=== PATIENT | male | born 1955 | race Caucasian/White ===

== ENCOUNTER → 2021-09-01 02:09 | Outpatient (CLI) | payer MEDICARE, SELFPAY ==
[2021-09-01 20:09] LABS: SARS-CoV-2 RNA PCR Negative
== END ==
PROVIDERS: PCP Physician Assistant; Visit Provider Internal Medicine Gastroenterology
DX: Z01.812 Encounter for preprocedural laboratory examination (principal); Z20.822 Contact with and (suspected) exposure to COVID-19
CPT/HCPCS: C9803; U0003; U0005

== ENCOUNTER 2021-09-04 00:52 | Day surgery (SDC) | payer MEDICARE, SELFPAY ==
[2021-08-17 14:32] VITALS: BMI 48.6
--- NOTE | 2021-09-03 13:17 | PM.HPGS ---
History of Present Illness History of Present Illness Consent: Risks, benefits, and alternatives have been discussed and questions answered. Patient agrees to proceed with procedure. Chief complaint: positive cologuard Narrative: Brijesh Rao is a 66 year old male referred for colon cancer screening. A recent Cologuard test was positive. Review of Systems Review of Systems: All systems reviewed & are unremarkable except as noted in HPI and below PMFSH Past Medical History Medical History Hypertension Family History Family History Father Family history of alcoholism Mother Family history of malignant neoplasm of cervix Social History Social History Smoking status: Never smoker Alcohol intake: never Substance use: never Substance use type: does not use Living arrangements: with family Spiritual care concerns: No Meds Home Medications and Allergies Home Medications Medication Instructions Recorded Confirmed Type candesartan 32 mg PO DAILY 08/17/21 08/17/21 History cetirizine 10 mg PO DAILY 08/17/21 08/17/21 History docosahexaenoic zwyg-ric-vxr E 2 cap PO DAILY 08/17/21 08/17/21 History [Cardi-[place] 3] furosemide 40 mg PO DAILY 08/17/21 08/17/21 History gxogxpbc-ljp-rahsc-vit K-lycop 1 tablet PO DAILY 08/17/21 08/17/21 History [One-A-Day Men's 50 Plus] naproxen sodium [Aleve] 440 mg PO BID PRN 08/17/21 08/17/21 History potassium chloride 10 meq PO DAILY 08/17/21 08/17/21 History vit B1 [id number]-FA [B 1 tablet PO DAILY 08/17/21 08/17/21 History Complex w-Vit C] Allergies Allergy/AdvReac Type Severity Reaction Status Date / Time No Known Allergies Allergy Verified 08/17/21 14:23 Exam Resp: Auscultation: clear to auscultation bilaterally Cardio: Rate: regular rate Rhythm: regular rhythm GI: GI Palp: Yes Soft to palpation and No Tenderness to palpation present (GI) Assessment and Plan Assessment and plan (1) Colon cancer screening: Code(s): Z12.11 - Encounter for screening for malignant neoplasm of colon Status: Acute Assessment and Plan: Colonoscopy with possible biopsy or polypectomy or cautery or injection of substances.
--- NOTE | 2021-09-04 07:54 | WPDANESEPPF ---
Anes - Initial Pre Proc Eval Procedure: Operation Date: 09/04/21 11:30 Proposed Procedures p Colonoscopy - Adama Thompson MD Date/Time: 09/04/21 07:54 Surgeon: Adama Thompson MD Pre Op Diagnosis: positive cologuard Patient Data Age: 66 Gender: M Height: 1.7 m Weight: 141 kg Allergies Allergy/AdvReac Type Severity Reaction Status Date / Time No Known Allergies Allergy Verified 09/04/21 10:50 Home Medications Medication Instructions Recorded Confirmed Type candesartan 32 mg PO DAILY 08/17/21 08/17/21 History cetirizine 10 mg PO DAILY 08/17/21 08/17/21 History docosahexaenoic udwf-lyo-asy E 2 cap PO DAILY 08/17/21 08/17/21 History [Cardi-[place] 3] furosemide 40 mg PO DAILY 08/17/21 08/17/21 History gearouyo-itz-ksymh-vit K-lycop 1 tablet PO DAILY 08/17/21 08/17/21 History [One-A-Day Men's 50 Plus] naproxen sodium [Aleve] 440 mg PO BID PRN 08/17/21 08/17/21 History potassium chloride 10 meq PO DAILY 08/17/21 09/04/21 History vit B1 [id number]-FA [B 1 tablet PO DAILY 08/17/21 08/17/21 History Complex w-Vit C] Patient hx anesthesia problems: none Family hx anesthesia problems: none Results Review: All pre-operative results and documents have been reviewed as part of the pre-operative evaluation. [facility] Past Medical History Medical History Hypertension Family History Family History Father Family history of alcoholism Mother Family history of malignant neoplasm of cervix Social History Social History Smoking status: Never smoker Alcohol intake: never Substance use: never Substance use type: does not use Living arrangements: with family Spiritual care concerns: No Anes - Eval Final PreProcedure Day of Procedure 09/04/21 07:54 Patient weight: morbidly obese Heart: regular rate and rhythm Lungs: clear to auscultation and normal air movement Airway: Mallampati scale class II Neurological: alert and oriented Last oral intake: >/= 8 hours ASA classification: III Emergent: no Anesthetic plan: proceed Anesthesia type and monitoring: general GIVS and standard monitoring Results Review: All pre-operative results and documents have been reviewed as part of the pre-operative evaluation. Informed Consent: The patient's anesthetic plan and its attendant risks and benefits were discussed with the patient/family/POA. Questions were solicited and answers provided to the satisfaction of the patient/family/POA.
[2021-09-04 10:52] VITALS: BP 158/88; PULSE 66; RESP 18; TEMP 36; O2SAT 97
[2021-09-04] MEDS: LACTATED RINGERS 1,000 ML 150 ML IV CONT (11:06)
[2021-09-04 11:34] VITALS: BP 130/80; PULSE 85; RESP 18; O2SAT 97
[2021-09-04 11:44] VITALS: BP 153/94; PULSE 83; RESP 19; O2SAT 98
[2021-09-04 11:54] VITALS: BP 159/97; PULSE 73; RESP 20; O2SAT 97
== END 2021-09-04 12:06 | disposition home or self-care (01) ==
PROVIDERS: PCP Physician Assistant; Visit Provider Internal Medicine Gastroenterology
PROC: 0DJD8ZZ Inspection of Lower Intestinal Tract, Via Natural or Artificial Opening Endoscopic (ICD-10-PCS; CPT 45378; principal; 2021-09-04 11:30)
DX: Z12.11 Encounter for screening for malignant neoplasm of colon (principal); R19.5 Other fecal abnormalities; I10 Essential (primary) hypertension; E66.01 Morbid (severe) obesity due to excess calories; Z68.42 Body mass index [BMI] 45.0-49.9, adult
CPT/HCPCS: G0121; C9803; J2704; J7120; U0003; U0005

== ENCOUNTER 2024-08-06 23:10 | Inpatient (IN) | payer MEDICARE, SELFPAY ==
--- NOTE | ~2024-08-06 | XR_ITS ---
XR chest 1V portable 08/09/2024 10:21 Indication: Shortness of breath Procedure: AP portable chest Comparison: 04/25/2014 Findings: Cardiomegaly with mild coronary vascular congestion. No pleural effusion or pneumothorax. N o acute osseous abnormality. Impression: 1: Mild pulmonary vascular congestion. Reviewed, dictated and finalized at location B. RVISOR PHOSPHORUS PROCESSING Impression: 1: Mild pulmonary vascular congestion.
--- NOTE | ~2024-08-06 | XR_ITS ---
EXAM: XR tibia fibula LT 2V DATE: 08/06/2024 23:59 HISTORY: BLISTERS REDDNESS PAIN . COMPARISON: None available. FINDINGS: Normal mineralization. No fracture or dislocation. No lytic or blastic lesion. Mild degene rative changes in the left knee and ankle. Plantar enthesopathy. No erosion or periosteal change. Ext ensive dermal thickening and subcutaneous stranding. Irregular and rounded densities overlying the so ft tissues may represent the reported superficial blisters. IMPRESSION: No acute osseous finding the left tibia/fibula. Reviewed, dictated and finalized at location K. LIFT TRUCK OPERATOR
--- NOTE | ~2024-08-06 | US_ITS ---
LEFT LOWER EXTREMITY VENOUS ULTRASOUND Ordering provider: Saundra Jennings MD History: . LLE redness, swelling, pain . Comparison: None. FINDINGS: --COMMON FEMORAL: Patent and free of thrombus. Normal compressibility, phasic flow and augmentation. --PROXIMAL SUPERFICIAL FEMORAL: Patent and free of thrombus. Normal compressibility, phasic flow and augmentation. --DISTAL SUPERFICIAL FEMORAL: Patent and free of thrombus. Normal compressibility, phasic flow and au gmentation. --POPLITEAL: Patent and free of thrombus. Normal compressibility, phasic flow and augmentation. --POSTERIOR TIBIAL: Patent and free of thrombus. Normal compressibility, phasic flow and augmentation . Left inguinal lymph node is seen measuring 3.4 x 5.4 x 1.7 cm. IMPRESSION: Negative left lower extremity venous US. No deep vein thrombosis. Reviewed, dictated and finalized at location A. ITAL CHIEF FINANCIAL OFFICER
--- NOTE | ~2024-08-06 | CT_ITS ---
EXAMINATION: CT tibia/fibula LT w con DATE: 08/08/2024 15:14 INDICATION: Worsening left lower limb cellulitis TECHNIQUE: High resolution computed tomography (CT) of the left tibia/fibula was performed with 100 m L Omnipaque-350 intravenous contrast. Additional sagittal and coronal reconstructions were performed. Automated exposure control and iterative reconstruction technique were employed. The dose-length pro duct was 1019.32 mGy-cm. COMPARISON: None FINDINGS: Bone alignment is normal. No fracture. There is at least moderate osteoarthritis at the medial and la teral compartments of the knee, severe disease which could be underestimated on nonweightbearing imag ing. No left knee joint effusion. Mild subtalar and minimal ankle osteoarthritis also without evident joint effusion. Mild to moderate osteoarthritis at the tarsal metatarsal joints. Skin thickening diffuse subcutaneous edema throughout the left lower leg and extending to the dorsum of the foot consistent with provided history of cellulitis. No loculated or peripherally enhancing fl uid collections to suggest abscess. No periosteal reaction, cortical erosions or other ostial lysis t o suggest osteomyelitis. There is moderate fatty atrophy of the gastrocnemius, soleus and peroneus longus and brevis muscle be llies. There is mild scattered atherosclerotic calcification without hematoma significant stenosis al gage the anterior tibial, posterior tibial and peroneal arteries with three-vessel runoff below the an kle. There is diffuse thickening and multiple small dystrophic calcifications along the Achilles tend on moderate tendinosis. IMPRESSION: 1. Likely cellulitis with skin thickening and diffuse subcutaneous edema throughout the left lower le g and extending over the dorsum of the foot. No abscess. 2. At least moderate osteoarthritis at the medial and lateral margins of the left knee, severity of w hich could be underestimated on nonweightbearing imaging. 3. Chronic Achilles tendinosis. Reviewed, dictated and finalized at location A. RINTENDENT STEVEDORING IMPRESSION: 1. Likely cellulitis with skin thickening and diffuse subcutaneous edema throug hout the left lower leg and extending over the dorsum of the foot. No abscess. 2. At least moderate osteoarthritis at the medial and lateral margins of the le ft knee, severity of which could be underestimated on nonweightbearing imaging. 3. Chronic Achilles tendinosis.
[2024-08-06 23:11] VITALS: BP 153/70; RESP 16; TEMP 36.2; O2SAT 97
--- NOTE | 2024-08-06 23:17 | PC.NURSE ---
left leg oozing, towels placed around leg by ed rn
[2024-08-07] VITALS (24 sets, daily range): BP systolic 113–149; BP diastolic 56–75; PULSE 88–104; RESP 16–26; TEMP 36.6–37.1; O2SAT 91–97; BMI 52.0
[2024-08-07 08:06] LABS: Basophils Absolute Auto 0.1 K/mm3 (0.0-0.1); Basophils Percent Auto 0.4 % (0.2-1.2); Eosinophils Absolute Auto 0.1 K/mm3 (0-0.3); Eosinophils Percent Auto 0.4 % (0-4.4); Hemoglobin 13.7 g/dL (14.0-18.0); Immature Granulocyte Absolute 0.25 K/mm3 (0.00-0.031); Immature Granulocyte Percent A 1.3 % (0-0.5); Lymphocytes Absolute Auto 1.41 K/mm3 (0.9-3.2); Lymphocytes Percent Auto 7.5 % (18.3-44.2); Mean Corpuscular HGB Conc 32.6 g/dl (32-36); Mean Corpuscular Hemoglobin 27.5 pg (26-34); Mean Corpuscular Volume 84.3 fl (80-100); Mean Platelet Volume 10.8 fl (7.4-10.4); Monocytes Absolute Auto 1.5 K/mm3 (0.1-0.6); Monocytes Percent Auto 8.2 % (2.6-8.5); Neutrophils Absolute Auto 15.4 K/mm3 (1.3-6.7); Neutrophils Percent Auto 82.2 % (45.5-73.1); Platelet Count Result 211 k/mm3 (150-375); Red Blood Count 4.98 M/mm3 (4.6-6.20); Red Cell Distribution Width 16.4 % (11.5-14.5); White Blood Count 18.8 K/mm3 (4.5-10.0)
--- NOTE | 2024-08-07 08:15 | ED.GENADULT ---
HPI - General Adult General Chief complaint: Extremity Injury, Lower Stated complaint: left leg redness and swelling, blisters Time Seen by Provider: 08/07/24 07:24 History of Present Illness HPI narrative: About 1 week ago patient noticed some slight redness to his left lower leg, but because he was in [place] on vacation did not get seen by . He is also supposed to be on Lasix but also stopped taking it because there is no time to stop to void. Has also been eating a lot and not using his compression stockings. The redness got worse until finally last night he started having blisters and that is when he decided to come to the hospital. Related Data Home Medications ?Medication ?Instructions ?Recorded ?Confirmed ?Last Taken ?Type candesartan 32 mg tablet 32 mg PO DAILY 08/17/21 08/17/21 09/03/21 09:00 History cetirizine 10 mg tablet 10 mg PO DAILY 08/17/21 08/17/21 09/03/21 09:00 History docosahexaenoic zawn-rnf-rrp E 2 cap PO DAILY 08/17/21 08/17/21 09/01/21 History capsule furosemide 40 mg tablet 40 mg PO DAILY 08/17/21 08/17/21 09/03/21 09:00 History rdcvzqpzexuf-cel-rtstv acid-vit 1 tablet PO DAILY 08/17/21 08/17/21 09/01/21 History K-lycop 400 mcg-20 mcg-370 mcg tablet (One-A-Day Men's 50 Plus (with vitamin K)) naproxen sodium 220 mg tablet 440 mg PO BID PRN Pain 08/17/21 08/17/21 09/03/21 09:00 History (Aleve) potassium chloride 10 mEq 10 meq PO DAILY 08/17/21 09/04/21 09/03/21 09:00 History tablet,extended release [id number]-S-FY 1 tablet PO DAILY 08/17/21 08/17/21 09/01/21 History 18 mg-10 mg-45 mg-5 mg-250 mg tablet (B Complex w-Vit C) Allergies Allergy/AdvReac Type Severity Reaction Status Date / Time No Known Allergies Allergy Verified 09/04/21 10:50 Review of Systems Review of Systems: All systems reviewed & are unremarkable except as noted in HPI and below PMFSH Past Medical History Medical History Hypertension Family History Family History Father Family history of alcoholism Mother Family history of malignant neoplasm of cervix Social History Social History Smoking status: Never smoker Alcohol intake: never Substance use: never Substance use type: does not use Living arrangements: with family Spiritual care concerns: No Exam Narrative: EXAMINATION OF ORGAN SYSTEMS/BODY AREAS: Constitutional: Vital signs per nursing GENERAL:[No acute distress, non-toxic appearing.] HEAD: Normal with no signs of head trauma. EYES: EOMI, conjunctiva normal ENT: Hearing grossly intact LUNGS: Nonlabored breathing. HEART: [Regular rate and rhythm] ABD: [Soft], [nontender to palpation] EXT: Swelling left lower extremity SKIN: Significant redness with some blisters to the left lower leg; no exquisite tenderness. Sensation intact. No crepitus. NEURO: [Alert and oriented x 3. No gross focal sensory or strength deficits.] PSYCH: Normal affect Course Vital Signs Vital signs: Vital Signs Temperature 97.2 F L 08/06/24 23:11 Respiratory Rate 16 08/06/24 23:11 Blood Pressure 153/70 H 08/06/24 23:11 Pulse Oximetry 97 08/06/24 23:11 Temperature 97.2 F L 08/06/24 23:11 Pulse Rate 89 08/07/24 08:12 Respiratory Rate 18 08/07/24 08:12 Blood Pressure 131/66 08/07/24 08:12 Pulse Oximetry 96 08/07/24 08:12 Medical Decision Making [facility] Narrative Medical decision making narrative: 69M with left lower leg swelling, redness, pain and chills, ongoing for last few days but he with why on vacation so has not been taking his Lasix, elevating his foot, or seeing a doctor for this. No chest pain or shortness of breath. I did rule out DVT with ultrasound which is thankfully negative. Symptoms and exam consistent with cellulitis to the unilateral exam, however with the blisters, patient being diabetic, and the elevated white count, I did feel he needed to be admitted. He is thankfully very well appearing, there is no crepitus or significant tenderness that would make me concerned for necrotizing fasciitis, he is overall a very well-appearing patient, with normal lactic acid, discussed with hospitalist for admission. Patient agreeable to this plan. I did also give a dose of Lasix. Vital Signs Vital Signs: Vital Signs Temperature 97.2 F L 08/06/24 23:11 Respiratory Rate 16 08/06/24 23:11 Blood Pressure 153/70 H 08/06/24 23:11 Pulse Oximetry 97 08/06/24 23:11 Temperature 97.2 F L 08/06/24 23:11 Pulse Rate 89 08/07/24 08:12 Respiratory Rate 18 08/07/24 08:12 Blood Pressure 131/66 08/07/24 08:12 Pulse Oximetry 96 08/07/24 08:12 Lab Data 08/07/24 04:50 08/07/24 04:50 Labs: Lab Results 08/07/24 08/07/24 Range/Units 04:50 08:26 WBC 18.8 H (4.5-10.0) K/mm3 RBC 4.98 (4.6-6.20) M/mm3 Hgb 13.7 L (14.0-18.0) g/dL Hct 42.0 (42.0-52.0) % MCV 84.3 (80-100) fl MCH 27.5 (26-34) pg MCHC 32.6 (32-36) g/dl RDW 16.4 H (11.5-14.5) % Plt Count 211 (150-375) k/mm3 MPV 10.8 H (7.4-10.4) fl Immature Gran % (Auto) 1.3 H (0-0.5) % Neut % (Auto) 82.2 H (45.5-73.1) % Lymph % (Auto) 7.5 L (18.3-44.2) % [place] % (Auto) 8.2 (2.6-8.5) % Eos % (Auto) 0.4 (0-4.4) % Baso % (Auto) 0.4 (0.2-1.2) % Lymph # (Auto) 1.41 (0.9-3.2) K/mm3 [place] # (Auto) 1.5 H (0.1-0.6) K/mm3 Eos # (Auto) 0.1 (0-0.3) K/mm3 Baso # (Auto) 0.1 (0.0-0.1) K/mm3 Abs Immat Gran (auto) 0.25 H (0.00-0.031) K/mm3 Absolute Neuts (auto) 15.4 H (1.3-6.7) K/mm3 Absolute Nucleated RBC 0.000 (0.0-0.012) K/mm3 Nucleated RBC % 0.0 (0.0-0.2) % Sodium 140 (137-145) mmol/L Potassium 3.9 (3.4-5.0) mmol/L Chloride 106 (98-107) mmol/L Carbon Dioxide 25 (22-30) mmol/L Anion Gap 9 (4-12) mmol/L BUN 31 H (9-20) mg/dL Creatinine 1.40 H (0.7-1.3) mg/dL Estim Creat Clear Calc 65 ml/min Estimated GFR 50 L (59 - ) Glucose 100 (65-110) mg/dL Lactic Acid 1.1 (0.7-2.0) mmol/L Calcium 9.1 (8.4-10.2) mg/dL Total Bilirubin 1.3 (0.2-1.3) mg/dL AST 32 (17-59) U/L ALT 26 (6-50) U/L Alkaline Phosphatase 188 H (38-126) U/L NT-Pro-B Natriuret Pep 827 H (19.9-100) pg/mL Total Protein 8.0 (6.3-8.2) g/dL Albumin 3.6 (3.5-5.1) g/dL Discharge Plan Discharge Clinical Impression: Cellulitis Patient Disposition: Still a Patient Condition: Stable Patient Language: Italian Prescriptions: No Action furosemide 40 mg tablet 40 mg PO DAILY cetirizine 10 mg Tablet 10 mg PO DAILY potassium chloride 10 mEq tablet extended release 10 meq PO DAILY naproxen sodium [Aleve] 220 mg Tablet 440 mg PO BID PRN (Reason: Pain) candesartan 32 mg tablet 32 mg PO DAILY docosahexaenoic qode-wen-pcz E Capsule 2 cap PO DAILY B Complex w-Vit C 67-72-72-5-250 mg Tablet 1 tablet PO DAILY One-A-Day Men's 50 Plus(vit K) 400-20-370 mcg Tablet 1 tablet PO DAILY Follow-up/Referrals: Tru,DIA Perez [Primary Care Provider] -
[2024-08-07 08:25] LABS: Alanine Aminotransferase 26 U/L (6-50); Albumin Level 3.6 g/dL (3.5-5.1); Alkaline Phosphatase 188 U/L (38-126); Anion Gap 9 mmol/L (4-12); Aspartate Amino Transferase 32 U/L (17-59); Bilirubin,Total 1.3 mg/dL (0.2-1.3); Blood Urea Nitrogen 31 mg/dL (9-20); Calcium 9.1 mg/dL (8.4-10.2); Carbon Dioxide 25 mmol/L (22-30); Chloride 106 mmol/L (98-107); Estimated CRCL calculation 65 ml/min; Estimated Glomerular Filt Rate 50; Glucose 100 mg/dL (65-110); Potassium 3.9 mmol/L (3.4-5.0); Sodium 140 mmol/L (137-145)
[2024-08-07 08:33] LABS: NT Pro B Type Natriuretic Pept 827 pg/mL (19.9-100)
[2024-08-07 08:46] LABS: Lactic Acid Reflex 1.1 mmol/L (0.7-2.0)
[2024-08-07] MEDS: FUROSEMIDE INJ 40 MG/4 ML VIAL IV PUSH (09:14)
[2024-08-07] MEDS: ceFAZolin 1 GM/NS 50 ML 1 GM/50 ML BAG IVPB ×2 (09:14→16:58)
[2024-08-07] MEDS: MORPHINE SULFATE (*CRX) 4 MG/ML INJ IV PUSH (10:13)
--- NOTE | 2024-08-07 10:32 | ADMGEN ---
This patient, Brijesh Joe rad, was admitted to Medical Room 241-. Patient/family oriented to hospital policies and general routines including ID bracelet, bed and alarms, visiting hours, pain management, procedures, bathroom and other care routines, personal items, smoking policy, room service/diet, and visiting hours. Information on how to activate the Rapid Response Team has been discussed. Patient/Family are encouraged to report perceived risks to care and to ask questions if they do not understand what they are told or what they should do.
[2024-08-07 11:37] LABS: Glucose Point of Care 96 mg/dl (65-105)
--- NOTE | 2024-08-07 14:57 | P.HP_ITS ---
H&P: HPI History of Present Illness Date/Time: 08/07/24 14:57 Chief Complaint: cellulitis left lower extremity Narrative: Patient is a 69-year-old male who presented to the emergency department with complaints of swelling and redness to his left lower extremity. Patient patient states he recently was vacationing in [place] for 3 weeks in stops taking his home medications 1 being his Lasix because he did not want have to stop and urinate all the time while driving as well as not taking his oral diabetic medications. patient states symptoms began 3 days ago on their way back from [facility] worsened reported 1 episode of shortness of breath, fever and chills. patient also stated he had hit his leg multiple times on wheelchair legs. patient's labs were unremarkable other than elevated white count 16 x-ray of tib-fib with no acute issues and venous Dopplers negative for DVT. patient's left lower extremity with 3+ edema, erythema and warmth to touch. Patient was admitted to the medical unit for further treatment of cellulitis started on IV antibiotics pending blood cultures and wound culture. Review of Systems Review of Systems: All systems reviewed & are unremarkable except as noted in HPI and below PMFSH Past Medical History Medical History Diabetes Hypertension Family History Family History Father Family history of alcoholism Diabetes mellitus Mother Family history of malignant neoplasm of cervix Social History Social History Smoking status: Never smoker Alcohol intake: never Substance use: never Substance use type: does not use Do You Feel Safe in your Home?: Yes Lack of Transportation: No Lack of Food: Never True Current Housing: I Have Housing Concerned About Future Housing: No Difficulty Paying Gas/Electric Bills: No Difficulty Paying for Meds: No Currently Unemployed: No Education: High School Diploma/GED Difficulty w/ Childcare or Family Care: No Living arrangements: with family Spiritual care concerns: No Meds Home Medications and Allergies Home Medications ?Medication ?Instructions ?Recorded ?Confirmed ?Type candesartan 32 mg tablet 32 mg PO DAILY 08/17/21 08/07/24 History cetirizine 10 mg tablet 10 mg PO DAILY 08/17/21 08/07/24 History docosahexaenoic zlik-sry-ygh E 2 cap PO DAILY 08/17/21 08/07/24 History capsule furosemide 40 mg tablet 40 mg PO DAILY 08/17/21 08/07/24 History mvopyfcsngmk-xpc-uayuy acid-vit 1 tablet PO DAILY 08/17/21 08/07/24 History K-lycop 400 mcg-20 mcg-370 mcg tablet (One-A-Day Men's 50 Plus (with vitamin K)) naproxen sodium 220 mg tablet 440 mg PO BID PRN Pain 08/17/21 08/07/24 History (Aleve) potassium chloride 10 mEq 10 meq PO DAILY 08/17/21 08/07/24 History tablet,extended release ascorbic acid (vitamin C) 500 mg 500 mg PO DAILY 08/07/24 08/07/24 History tablet (C-500) cholecalciferol (vitamin D3) 50 50 mcg PO DAILY 08/07/24 08/07/24 History mcg (2,000 unit) capsule (Vitamin D3) glimepiride 1 mg tablet 1 mg PO DAILY 08/07/24 08/07/24 History mecobalamin (vitamin B12) 1,000 1,000 mcg PO DAILY 08/07/24 08/07/24 History mcg chewable tablet metformin 750 mg tablet,extended 750 mg PO QPM 08/07/24 08/07/24 History release 24 hr Allergies Allergy/AdvReac Type Severity Reaction Status Date / Time No Known Allergies Allergy Verified 09/04/21 10:50 Vital Signs Vital Signs - 24 hr 08/06/24 23:11 08/07/24 07:39 08/07/24 07:41 Temperature 97.2 F L Pulse Rate Respiratory Rate 16 Blood Pressure 153/70 H 149/68 H Pulse Oximetry 97 97 95 Oxygen Delivery 08/07/24 07:45 08/07/24 07:46 08/07/24 08:00 Temperature Pulse Rate Respiratory Rate Blood Pressure 130/67 Pulse Oximetry 95 95 93 Oxygen Delivery 08/07/24 08:01 08/07/24 08:12 08/07/24 08:15 Temperature Pulse Rate 89 Respiratory Rate 18 Blood Pressure 131/66 131/66 Pulse Oximetry 93 96 94 Oxygen Delivery 08/07/24 08:16 08/07/24 08:31 08/07/24 08:46 Temperature Pulse Rate Respiratory Rate Blood Pressure 129/62 149/71 H 134/66 Pulse Oximetry 94 Oxygen Delivery 08/07/24 09:01 08/07/24 09:12 08/07/24 09:15 Temperature Pulse Rate 104 H 90 Respiratory Rate 23 H 22 H Blood Pressure 125/75 Pulse Oximetry 95 97 Oxygen Delivery 08/07/24 09:16 08/07/24 09:30 08/07/24 09:31 Temperature Pulse Rate 90 91 92 Respiratory Rate 26 H 22 H 22 H Blood Pressure 139/62 133/71 Pulse Oximetry 95 92 93 Oxygen Delivery 08/07/24 09:45 08/07/24 09:46 08/07/24 10:00 Temperature Pulse Rate 94 90 92 Respiratory Rate 22 H 24 H 22 H Blood Pressure 130/69 Pulse Oximetry 94 93 91 Oxygen Delivery 08/07/24 10:01 08/07/24 10:54 08/07/24 11:28 Temperature 98.6 F Pulse Rate 88 94 Respiratory Rate 21 H 18 Blood Pressure 113/56 L 125/65 Pulse Oximetry 96 95 Oxygen Delivery Room Air 08/07/24 14:00 Temperature 98.7 F Pulse Rate 90 Respiratory Rate 20 Blood Pressure 145/70 H Pulse Oximetry 96 Oxygen Delivery Exam Narrative: BP: 145/70 P: 90 RR: 20 T: 98.7 O2 on RA 96% * GENERAL: Alert and oriented x 3 pleasant obese male. No acute distress. * EYES: PERRLA. * HEENT: Moist mucous membranes. * LUNGS: Clear to auscultation bilaterally. No accessory muscle use. * CARDIOVASCULAR: Regular rate and rhythm. JVD. S1-S2 * ABDOMEN: Soft, non tenderness and non-distended. No palpable masses. * EXTREMITIES: 3+ edema LLE, tender to touch * SKIN: LLE with erthyema, 3+ edema, warm to touch and 1 open blister * NEUROLOGIC: No focal neurological deficits. * PSYCHIATRIC: Appropriate mood and affect. Good judgement and insight. H&P: Results Labs Labs: Short CBC 08/07/24 Range/Units 04:50 WBC 18.8 H (4.5-10.0) K/mm3 Hgb 13.7 L (14.0-18.0) g/dL Hct 42.0 (42.0-52.0) % Plt Count 211 (150-375) k/mm3 BMP 08/07/24 04:50 Sodium 140 Potassium 3.9 Chloride 106 Carbon Dioxide 25 BUN 31 H Creatinine 1.40 H Glucose 100 Calcium 9.1 Liver Function 08/07/24 Range/Units 04:50 Total Bilirubin 1.3 (0.2-1.3) mg/dL AST 32 (17-59) U/L ALT 26 (6-50) U/L Alkaline Phosphatase 188 H (38-126) U/L Albumin 3.6 (3.5-5.1) g/dL Imaging Venous US: Radiologist's impression: LEFT LOWER EXTREMITY VENOUS ULTRASOUND Ordering provider: Saundra Jennings MD History: . LLE redness, swelling, pain . Comparison: None. FINDINGS: --COMMON FEMORAL: Patent and free of thrombus. Normal compressibility, phasic flow and augmentation. --PROXIMAL SUPERFICIAL FEMORAL: Patent and free of thrombus. Normal compressi bility, phasic flow and augmentation. --DISTAL SUPERFICIAL FEMORAL: Patent and free of thrombus. Normal compressibility, phasic flow and augmentation. --POPLITEAL: Patent and free of thrombus. Normal compressibility, phasic flow and augmentation. --POSTERIOR TIBIAL: Patent and free of thrombus. Normal compressibility, phasic flow and augmentation. Left inguinal lymph node is seen measuring 3.4 x 5.4 x 1.7 cm. IMPRESSION: Negative left lower extremity venous US. No deep vein thrombosis. EXAM: XR tibia fibula LT 2V DATE: 08/06/2024 23:59 HISTORY: BLISTERS REDDNESS PAIN . COMPARISON: None available. FINDINGS: Normal mineralization. No fracture or dislocation. No lytic or blastic lesion. Mild degenerative changes in the left knee and ankle. Plantar enthesopathy. No erosion or periosteal change. Extensive dermal thickening and subcutaneous stranding. Irregular and rounded densities overlying the soft tissues may represent the reported superficial blisters. IMPRESSION: No acute osseous finding the left tibia/fibula. Assessment and Plan Assessment and plan (1) Cellulitis: Code(s): L03.90 - Cellulitis, unspecified Status: Acute Assessment and Plan: Patient quit taking his medications while on vacation for 3 weeks cellulitis of the LLE likely secondary to his diabetes, not taking his lasix, and reported he hit it on multiple wheelchair bars. * Blood cultures pending * Wound culture pending * Imaging: tib-fib no acute of with this finding * venous Doppler negative for DVT * cefazolin pending cultures * glucose controlled * elevate extremity when at rest * antipyretics for any fever * pain control * Lasix IV daily for LLE swelling has not taken PO in over 3 weeks (2) Diabetes: Code(s): E11.9 - Type 2 diabetes mellitus without complications Status: Acute Assessment and Plan: * Accu-Cheks a.c. HS * sliding scale insulin * hold oral diabetic medications * Hemoglobin A1c pending * Diabetic diet * encourage lifestyle modifications and weight loss * Optimize Noah inhibitors and statins. * Watch for hypoglycemia/hypoglycemic protocol ordered (3) Hypertension: Code(s): I10 - Essential (primary) hypertension Status: Acute Assessment and Plan: * reviewed mildly hypertensive POA * will resume patient's candesartan will likely need auto sub * monitor BP per unit protocol Plan Code status: Full code per patient DVT prophylaxis: Lovenox Stress ulcer prophylaxis: NA PT/OT notes: Ambulatory Disposition: patient was admitted to the medical unit for left lower extremity cellulitis continue with IV antibiotic therapy IV Lasix pending cultures. Patient is ambulatory and plan will be to discharge back to home medically stable. Quality VTE Prophylaxis VTE prophylaxis: pharmacologic ordered -Patient's previous records reviewed on admission -ER notes reviewed in detail on admission -discussed all findings and current treatment plan with patient/Family/POA -Consultations reviewed for recommendations -Patient's disposition for safe discharge discussed with high risk case manager Dictation performed by [employer] direct speech recognition software, therefore sharepoint web developer variants and typographical errors may occur. Hospitalist MIPS Advance Care Plan I have confirmed that the patient's Advanced Care Plan is present, code status is documented, or surrogate decision maker is listed in patient medical record.: Yes Medication Reconciliation I have utilized all available resources to obtain, update and review the [facility] (includes all prescriptions, OTC, herbals, cannabis, and nutritional supplements).: Yes The patient is not eligible for med reconciliation; the patient is in a emergent medical situation where delaying treatment would jeopardize the patients health.: No
[2024-08-07 17:02] LABS: Glucose Point of Care 86 mg/dl (65-105)
[2024-08-07 20:00] LABS: Glucose Point of Care 127 mg/dl (65-105)
[2024-08-07] MEDS: guaiFENesin/DEXTROMETHORPHAN 10 ML UDC PO (22:19)
[2024-08-08] MEDS: ceFAZolin 1 GM/NS 50 ML 1 GM/50 ML BAG IVPB ×2 (01:34→07:59)
[2024-08-08 05:55] VITALS: BP 140/64; PULSE 85; RESP 16; TEMP 36.5; O2SAT 93
[2024-08-08 05:56] LABS: Basophils Absolute Auto 0.1 K/mm3 (0.0-0.1); Basophils Percent Auto 0.5 % (0.2-1.2); Eosinophils Absolute Auto 0.1 K/mm3 (0-0.3); Eosinophils Percent Auto 0.6 % (0-4.4); Hemoglobin 12.8 g/dL (14.0-18.0); Immature Granulocyte Absolute 0.87 K/mm3 (0.00-0.031); Lymphocytes Absolute Auto 1.68 K/mm3 (0.9-3.2); Lymphocytes Percent Auto 9.6 % (18.3-44.2); Mean Corpuscular Hemoglobin 26.9 pg (26-34); Mean Corpuscular Volume 84.2 fl (80-100); Monocytes Absolute Auto 1.6 K/mm3 (0.1-0.6); Monocytes Percent Auto 9.1 % (2.6-8.5); Neutrophils Absolute Auto 13.2 K/mm3 (1.3-6.7); Neutrophils Percent Auto 75.2 % (45.5-73.1); Platelet Count Result 209 k/mm3 (150-375); Red Blood Count 4.75 M/mm3 (4.6-6.20); Red Cell Distribution Width 16.5 % (11.5-14.5); White Blood Count 17.5 K/mm3 (4.5-10.0)
[2024-08-08 06:11] LABS: Hemoglobin A1C 6.1 % (<5.7)
[2024-08-08 06:12] LABS: Alanine Aminotransferase 17 U/L (6-50); Albumin Level 3.3 g/dL (3.5-5.1); Alkaline Phosphatase 168 U/L (38-126); Anion Gap 9 mmol/L (4-12); Aspartate Amino Transferase 21 U/L (17-59); Bilirubin,Total 1.1 mg/dL (0.2-1.3); Blood Urea Nitrogen 27 mg/dL (9-20); Calcium 8.5 mg/dL (8.4-10.2); Carbon Dioxide 22 mmol/L (22-30); Chloride 106 mmol/L (98-107); Estimated CRCL calculation 74 ml/min; Estimated Glomerular Filt Rate 60; Glucose 92 mg/dL (65-110); Potassium 3.8 mmol/L (3.4-5.0); Sodium 137 mmol/L (137-145)
--- NOTE | 2024-08-08 07:41 | PM.IMPN ---
Progress Note: A&P Assessment and Plan (1) Cellulitis: Code(s): L03.90 - Cellulitis, unspecified Status: Acute Assessment and Plan: Patient quit taking his medications while on vacation for 3 weeks cellulitis of the LLE likely secondary to his diabetes, not taking his lasix, and reported he hit it on multiple wheelchair bars. Blood cultures showing no growth to date Wound culture pending tib-fib x-ray no acute of with this finding venous Doppler negative for DVT elevate extremity when at rest on 2 pillows Continue pain control Will get CT of left lower extremity with contrast Increased IV lasix to 40 mg BID WBC 17.5 today, not much movement Continue cefazolin Start Vancomycin today, pharmacy to dose (2) Diabetes: Code(s): E11.9 - Type 2 diabetes mellitus without complications Status: Acute Assessment and Plan: Blood sugars ranging 96-127 Hgb A1C 6.1 Accu checks AC/HS Moderate dose SSI ordered Hold metformin and glimepiride hypoglycemic protocol in place Diabetic diet ordered (3) Hypertension: Code(s): I10 - Essential (primary) hypertension Status: Acute Assessment and Plan: Blood pressure ranging 125/65-145/70 Continue Candesartan Time Spent With Patient Time with patient: Greater than 35 minutes Subjective Date/time seen: 08/08/24 07:41 Interval history: Interval history: This is a 69-year-old male who presented to the hospital on 08/07/2024 with cellulitis to the left lower extremity. Workup in the hospital included tib fib x-ray which was negative for any acute osseous process. Venous Doppler study was also obtained and was negative for DVT. Initial labs showed a white blood cell count of 18.8, hemoglobin 13.7, creatinine 1.40, EGFR 50, alkaline phos 188, proBNP 827. Blood cultures were obtained and are pending. Patient was started on Ancef. Subjective: Patient denies any fever, chills, nausea, vomiting, diarrhea, abdominal pain, chest pain, shortness of breath. Patient endorses pain and swelling to left lower extremity. Labs and imaging reviewed. Review of Systems Review of Systems: All systems reviewed & are unremarkable except as noted in HPI and below Constitutional: Constitutional: Reports as per HPI and Reports no additional constitutional complaints Eyes: Eyes: Reports as per HPI and Reports no additional eye complaints ENT: Reports system reviewed and no additional complaints, except as documented and Reports as per HPI Cardiovascular: Cardiovascular: Reports as per HPI and Reports no additional cardiovascular complaints Respiratory: Respiratory: Reports as per HPI and Reports no additional respiratory complaints Gastrointestinal: Gastrointestinal: Reports as per HPI and Reports no additional gastrointestinal complaints Genitourinary: Genitourinary: Reports no additional male genitourinary complaints and Reports as per HPI Musculoskeletal: Musculoskeletal: Reports no additional musculoskeletal complaints and Reports as per HPI Integumentary/Breasts: Skin/Breast: Reports system reviewed and no additional complaints, except as docu and Reports as per HPI Neurologic: Reports system reviewed and no additional complaints, except as documented and Reports as per HPI Psychiatric: Psychiatric: Reports no additional psychiatric complaints and Reports as per HPI Exam Narrative: General: In no acute distress, well nourished Head: atraumatic, no encephalopathy Eyes: PERRLA, sclera clear ENT: moist mucous membranes, nasal passages clear Neck: supple, no JVD, no adenopathy, trachea midline Cardiac: Normal S1 and S2. No murmur, gallops or friction rubs, peripheral pulses intact. Respiratory: Lungs clear to auscultation, no adventitious lung sounds, currently on room air Gastrointestinal: soft, non-distended, non-tender, normoactive bowel sounds. : voiding without difficulty clear vic urine Extremities: moves all extremities well, no edema, good ROM, strength 5/5 Skin: Left lower extremity swelling with redness and warmth, popped blisters that are draining. Neuro: Alert and oriented x4, cranial nerves intact, no neuro deficits. Psych: normal mood, normal affect, interactive Objective Data Vital Signs Vital Signs: Vital Signs - 24 hr 08/07/24 07:45 08/07/24 07:46 08/07/24 08:00 Temperature Pulse Rate Respiratory Rate Blood Pressure 130/67 Pulse Oximetry 95 95 93 Oxygen Delivery 08/07/24 08:01 08/07/24 08:12 08/07/24 08:15 Temperature Pulse Rate 89 Respiratory Rate 18 Blood Pressure 131/66 131/66 Pulse Oximetry 93 96 94 Oxygen Delivery 08/07/24 08:16 08/07/24 08:31 08/07/24 08:46 Temperature Pulse Rate Respiratory Rate Blood Pressure 129/62 149/71 H 134/66 Pulse Oximetry 94 Oxygen Delivery 08/07/24 09:01 08/07/24 09:12 08/07/24 09:15 Temperature Pulse Rate 104 H 90 Respiratory Rate 23 H 22 H Blood Pressure 125/75 Pulse Oximetry 95 97 Oxygen Delivery 08/07/24 09:16 08/07/24 09:30 08/07/24 09:31 Temperature Pulse Rate 90 91 92 Respiratory Rate 26 H 22 H 22 H Blood Pressure 139/62 133/71 Pulse Oximetry 95 92 93 Oxygen Delivery 08/07/24 09:45 08/07/24 09:46 08/07/24 10:00 Temperature Pulse Rate 94 90 92 Respiratory Rate 22 H 24 H 22 H Blood Pressure 130/69 Pulse Oximetry 94 93 91 Oxygen Delivery 08/07/24 10:01 08/07/24 10:54 08/07/24 11:28 Temperature 98.6 F Pulse Rate 88 94 Respiratory Rate 21 H 18 Blood Pressure 113/56 L 125/65 Pulse Oximetry 96 95 Oxygen Delivery Room Air 08/07/24 14:00 08/07/24 20:52 08/08/24 05:55 Temperature 98.7 F 97.8 F 97.7 F Pulse Rate 90 91 85 Respiratory Rate 20 16 16 Blood Pressure 145/70 H 131/64 140/64 Pulse Oximetry 96 96 93 Oxygen Delivery Intake/Output Intake/Output: Intake & Output 08/05/24 08/06/24 08/07/24 08/08/24 23:59 23:59 23:59 23:59 Intake Total 1540 250 Output Total 1250 525 Balance 290 -275 Meds/Results Medications: Active Medications Generic Name Dose Route Start Last Admin Trade Name Freq PRN Reason Stop Dose Admin Acetaminophen 650 mg 08/07/24 14:59 Acetaminophen 325 Mg Tablet PO Q4H PRN Mild Pain (1-3) or Fever Hydrocodone Bitart/Acetaminophen 1 tab 08/07/24 14:59 Hydrocodone/Acetaminophen (*Crx) 5-325 Mg Tablet PO Q4H PRN Moderate Pain (4-6) Ascorbic Acid 500 mg 08/08/24 09:00 Ascorbic Acid 500 Mg Tablet PO DAILY KAVIN Candesartan Cilexetil 32 mg 08/08/24 09:00 Candesartan Cilexetil 16 Mg Tablet PO QAM [facility] Cyanocobalamin 1,000 mcg 08/08/24 09:00 Cyanocobalamin 1,000 Mcg Tablet PO QAM KAVIN Dextrose 12.5 gm 08/07/24 12:06 Dextrose 50% 25 Gm/50 Ml Syringe IV PUSH PRN PRN Hypoglycemia Protocol Dextrose 12.5 gm 08/07/24 15:01 Dextrose 50% 25 Gm/50 Ml Syringe IV PUSH PRN PRN Hypoglycemia Protocol Enoxaparin Sodium 40 mg 08/08/24 09:00 Enoxaparin 40 Mg/0.4 Ml Syringe SUB-Q DAILY KAVIN Furosemide 40 mg 08/08/24 09:00 Furosemide Inj 40 Mg/4 Ml Vial IV PUSH DAILY KAVIN Glucagon 1 mg 08/07/24 12:06 Glucagon For Inj 1 Mg Vial IM PRN PRN Hypoglycemia Protocol Glucagon 1 mg 08/07/24 15:01 Glucagon For Inj 1 Mg Vial IM PRN PRN Hypoglycemia Protocol Glucose 15 gm 08/07/24 12:06 Glucose Oral Gel 15 Gm Of Glucse In 37.5 Gm Tube PO PRN PRN Hypoglycemia Protocol Glucose 15 gm 08/07/24 15:01 Glucose Oral Gel 15 Gm Of Glucse In 37.5 Gm Tube PO PRN PRN Hypoglycemia Protocol Guaifenesin/Dextromethorphan 10 ml 08/07/24 22:14 08/07/24 22:19 Guaifenesin/Dextromethorphan 10 Ml Udc PO 10 ml Q4H PRN Administration Cough Cefazolin Sodium 1 gm in 50 mls @ 100 mls/hr 08/07/24 17:00 08/08/24 02:04 Ancef 1 Gm/Ns 50 Ml IVPB Infused Q8H KAVIN Infusion Dextrose 1,000 mls @ 100 mls/hr 08/07/24 12:06 Dextrose 5% 1,000 Ml IVPB PRN PRN Hypoglycemia Protocol Dextrose 1,000 mls @ 100 mls/hr 08/07/24 15:01 Dextrose 5% 1,000 Ml IVPB PRN PRN Hypoglycemia Protocol Insulin Aspart 3 - 6 units 08/07/24 17:00 08/07/24 18:35 Insulin Aspart (*Bkc) 100 Units/Ml SUB-Q Not Given TIDWM [facility] Protocol Loratadine 10 mg 08/08/24 09:00 Loratadine 10 Mg Tablet PO QAM [facility] Morphine Sulfate 2 mg 08/07/24 14:59 Morphine Sulfate (*Crx) 2 Mg/Ml Inj IV PUSH Q4H PRN Pain Rated 7-10 Multivitamins/Calcium 1 tablet 08/08/24 09:00 Therapeutic Multivitamins/Minerals Tab (*Bkc) PO DAILY [facility] Naloxone HCl 0.1 mg 08/07/24 14:59 Naloxone Hcl 0.4 Mg/Ml Vial IV PUSH Q2M PRN Opiate Reversal Ondansetron HCl 4 mg 08/07/24 14:59 Ondansetron Inj 4 Mg/2 Ml Vial IV PUSH Q6H PRN Nausea And Vomiting Vitamin D 2,000 units 08/08/24 09:00 Cholecalciferol 1,000 Units Tablet PO DAILY [facility] Radiology Results: ITS Impressions Tibia/Fibula X-Ray 08/07/24 00:14 IMPRESSION: No acute osseous finding the left tibia/fibula. Venous Doppler Study 08/07/24 08:59 IMPRESSION: Negative left lower extremity venous US. No deep vein thrombosis. Labs Labs: Laboratory Results - last 24 hr 08/07/24 08/07/24 08/07/24 04:50 08:26 11:33 WBC 18.8 H RBC 4.98 Hgb 13.7 L Hct 42.0 MCV 84.3 MCH 27.5 MCHC 32.6 RDW 16.4 H Plt Count 211 MPV 10.8 H Immature Gran % (Auto) 1.3 H Neut % (Auto) 82.2 H Lymph % (Auto) 7.5 L Garvin % (Auto) 8.2 Eos % (Auto) 0.4 Baso % (Auto) 0.4 Lymph # (Auto) 1.41 Garvin # (Auto) 1.5 H Eos # (Auto) 0.1 Baso # (Auto) 0.1 Abs Immat Gran (auto) 0.25 H Absolute Neuts (auto) 15.4 H Absolute Nucleated RBC 0.000 Nucleated RBC % 0.0 Sodium 140 Potassium 3.9 Chloride 106 Carbon Dioxide 25 Anion Gap 9 BUN 31 H Creatinine 1.40 H Estim Creat Clear Calc 65 Estimated GFR 50 L Glucose 100 POC Capillary Glucose 96 Hemoglobin A1c Lactic Acid 1.1 Calcium 9.1 Total Bilirubin 1.3 AST 32 ALT 26 Alkaline Phosphatase 188 H NT-Pro-B Natriuret Pep 827 H Total Protein 8.0 Albumin 3.6 08/07/24 08/07/24 08/08/24 16:56 19:38 05:07 WBC 17.5 H RBC 4.75 Hgb 12.8 L Hct 40.0 L MCV 84.2 MCH 26.9 MCHC 32.0 RDW 16.5 H Plt Count 209 MPV 11.0 H Immature Gran % (Auto) 5.0 H Neut % (Auto) 75.2 H Lymph % (Auto) 9.6 L Garvin % (Auto) 9.1 H Eos % (Auto) 0.6 Baso % (Auto) 0.5 Lymph # (Auto) 1.68 Garvin # (Auto) 1.6 H Eos # (Auto) 0.1 Baso # (Auto) 0.1 Abs Immat Gran (auto) 0.87 H Absolute Neuts (auto) 13.2 H Absolute Nucleated RBC 0.000 Nucleated RBC % 0.0 Sodium 137 Potassium 3.8 Chloride 106 Carbon Dioxide 22 Anion Gap 9 BUN 27 H Creatinine 1.20 Estim Creat Clear Calc 74 Estimated GFR 60 Glucose 92 POC Capillary Glucose 86 127 H Hemoglobin A1c 6.1 H Lactic Acid Calcium 8.5 Total Bilirubin 1.1 AST 21 ALT 17 Alkaline Phosphatase 168 H NT-Pro-B Natriuret Pep Total Protein 7.0 Albumin 3.3 L Quality VTE Prophylaxis VTE prophylaxis: pharmacologic ordered
[2024-08-08 07:51] LABS: Glucose Point of Care 109 mg/dl (65-105)
[2024-08-08] MEDS: HYDROcodone/acetaminophen (*CRX) 5-325 MG TABLET 1 TAB PO (07:57)
[2024-08-08] MEDS: CANDESARTAN CILEXETIL 16 MG TABLET 32 MG PO (08:00)
[2024-08-08] MEDS: ENOXAPARIN 40 MG/0.4 ML SYRINGE SUB-Q (08:00)
[2024-08-08] MEDS: CHOLECALCIFEROL 1,000 UNITS TABLET 2000 UNITS PO (08:01)
[2024-08-08] MEDS: ASCORBIC ACID 500 MG TABLET PO (08:01)
[2024-08-08] MEDS: THERAPEUTIC MULTIVITAMINS/MINERALS TAB (*BKC) 1 TABLET PO (08:01)
[2024-08-08] MEDS: CYANOCOBALAMIN 1,000 MCG TABLET 1000 MCG PO (08:01)
[2024-08-08] MEDS: LORATADINE 10 MG TABLET PO (08:01)
[2024-08-08] MEDS: FUROSEMIDE INJ 40 MG/4 ML VIAL IV PUSH ×2 (08:01→16:24)
[2024-08-08 11:57] LABS: Glucose Point of Care 114 mg/dl (65-105)
[2024-08-08 13:42] VITALS: BP 143/70; PULSE 87; RESP 20; TEMP 36.3; O2SAT 94
[2024-08-08] MEDS: ceFAZolin 2 GM/D5W 50 ML 2 GM/50 ML BAG IVPB ×2 (15:50→21:24)
[2024-08-08] MEDS: VANCOMYCIN 1,500 MG/NS 500 ML 1,500 MG/500 ML BAG 250 MG IVPB (16:24)
[2024-08-08 16:52] LABS: Glucose Point of Care 101 mg/dl (65-105)
[2024-08-08 20:30] VITALS: BP 139/67; PULSE 88; RESP 18; TEMP 36.9; O2SAT 95
[2024-08-08] MEDS: guaiFENesin/DEXTROMETHORPHAN 10 ML UDC PO (21:25)
[2024-08-08 21:26] LABS: Glucose Point of Care 98 mg/dl (65-105)
[2024-08-08] MEDS: ALBUTEROL SULFATE (*SP) AEROSOL 1 PUFF 2 PUFF INHALATION (22:32)
[2024-08-09] MEDS: ceFAZolin 2 GM/D5W 50 ML 2 GM/50 ML BAG IVPB ×2 (06:02→13:50)
[2024-08-09 06:07] LABS: Basophils Absolute Auto 0.1 K/mm3 (0.0-0.1); Basophils Percent Auto 0.4 % (0.2-1.2); Eosinophils Percent Auto 0.2 % (0-4.4); Hematocrit 39.5 % (42.0-52.0); Immature Granulocyte Absolute 0.78 K/mm3 (0.00-0.031); Immature Granulocyte Percent A 3.9 % (0-0.5); Lymphocytes Absolute Auto 1.89 K/mm3 (0.9-3.2); Lymphocytes Percent Auto 9.4 % (18.3-44.2); Mean Corpuscular HGB Conc 32.9 g/dl (32-36); Mean Corpuscular Hemoglobin 27.1 pg (26-34); Mean Corpuscular Volume 82.5 fl (80-100); Mean Platelet Volume 10.3 fl (7.4-10.4); Monocytes Absolute Auto 1.6 K/mm3 (0.1-0.6); Monocytes Percent Auto 8.1 % (2.6-8.5); Neutrophils Absolute Auto 15.7 K/mm3 (1.3-6.7); Platelet Count Result 263 k/mm3 (150-375); Red Blood Count 4.79 M/mm3 (4.6-6.20); Red Cell Distribution Width 16.6 % (11.5-14.5); White Blood Count 20.2 K/mm3 (4.5-10.0)
[2024-08-09 06:26] VITALS: BP 148/62; PULSE 85; RESP 18; TEMP 36.4; O2SAT 95
[2024-08-09 06:29] LABS: Alanine Aminotransferase 16 U/L (6-50); Albumin Level 3.4 g/dL (3.5-5.1); Alkaline Phosphatase 222 U/L (38-126); Anion Gap 8 mmol/L (4-12); Aspartate Amino Transferase 25 U/L (17-59); Bilirubin,Total 1.1 mg/dL (0.2-1.3); Blood Urea Nitrogen 25 mg/dL (9-20); Calcium 8.6 mg/dL (8.4-10.2); Carbon Dioxide 27 mmol/L (22-30); Chloride 102 mmol/L (98-107); Estimated CRCL calculation 69 ml/min; Estimated Glomerular Filt Rate 55; Glucose 108 mg/dL (65-110); Potassium 3.8 mmol/L (3.4-5.0); Sodium 137 mmol/L (137-145)
[2024-08-09 08:03] LABS: Glucose Point of Care 110 mg/dl (65-105)
[2024-08-09] MEDS: ALBUTEROL SULFATE (*SP) AEROSOL 1 PUFF 2 PUFF INHALATION ×2 (08:04→21:52)
[2024-08-09] MEDS: CANDESARTAN CILEXETIL 16 MG TABLET 32 MG PO (08:21)
[2024-08-09] MEDS: ASCORBIC ACID 500 MG TABLET PO (08:21)
[2024-08-09] MEDS: LORATADINE 10 MG TABLET PO (08:22)
[2024-08-09] MEDS: CYANOCOBALAMIN 1,000 MCG TABLET 1000 MCG PO (08:22)
[2024-08-09] MEDS: ENOXAPARIN 40 MG/0.4 ML SYRINGE SUB-Q (08:22)
[2024-08-09] MEDS: THERAPEUTIC MULTIVITAMINS/MINERALS TAB (*BKC) 1 TABLET PO (08:22)
[2024-08-09] MEDS: FUROSEMIDE INJ 40 MG/4 ML VIAL IV PUSH ×2 (08:22→16:44)
[2024-08-09] MEDS: CHOLECALCIFEROL 1,000 UNITS TABLET 2000 UNITS PO (08:22)
[2024-08-09] MEDS: VANCOMYCIN 1,500 MG/NS 500 ML 1,500 MG/500 ML BAG 250 MG IVPB (10:34)
[2024-08-09 11:58] LABS: Glucose Point of Care 122 mg/dl (65-105)
--- NOTE | 2024-08-09 12:08 | P.PNIM_ITS ---
Progress Note: A&P Assessment and Plan (1) Cellulitis: Code(s): L03.90 - Cellulitis, unspecified Status: Acute Assessment and Plan: Patient quit taking his medications while on vacation for 3 weeks cellulitis of the LLE likely secondary to his diabetes, not taking his Lasix, and reported he hit it on multiple wheelchair bars. * Blood cultures showing no growth to date * Wound culture pending * tib-fib x-ray no acute of with this finding * venous Doppler negative for DVT * elevate extremity when at rest on 2 pillows * Continue pain control * CT of left lower extremity with contrast shown likely cellulitis with skin thickening and diffuse subcutaneous edema throughout the left lower leg and extending over the dorsum of the foot, no abscess, moderate osteoarthritis at the medial and lateral margins of the left knee, chronic Achilles tendonitis * WBC increased to 20.2 * Change Ancef and Vancomycin to Linezolid and Zosyn considering that the leg is not looking better and WBC continues to climb. (2) CHF (congestive heart failure): Code(s): I50.9 - Heart failure, unspecified Status: Acute Assessment and Plan: * fluid restrict diet 1500 ml daily * continue IV Lasix b.i.d. * initial proBNP 827 * will recheck proBNP today (3) Diabetes: Code(s): E11.9 - Type 2 diabetes mellitus without complications Status: Acute Assessment and Plan: * Blood sugars ranging 110-122 * Hgb A1C 6.1 * Accu checks AC/HS * Moderate dose SSI ordered * Hold metformin and glimepiride * hypoglycemic protocol in place * Diabetic diet ordered (4) Hypertension: Code(s): I10 - Essential (primary) hypertension Status: Acute Assessment and Plan: * Blood pressure ranging 131/64-148/62 * Continue Candesartan Time Spent With Patient Time with patient: Greater than 35 minutes Subjective Date/time seen: 08/09/24 12:08 Interval history: Interval history: This is a 69-year-old male who presented to the hospital on 08/07/2024 with cellulitis to the left lower extremity. Workup in the hospital included tib fib x-ray which was negative for any acute osseous process. Venous Doppler study was also obtained and was negative for DVT. Initial labs showed a white blood cell count of 18.8, hemoglobin 13.7, creatinine 1.40, EGFR 50, alkaline phos 188, proBNP 827. Blood cultures were obtained and are pending. Patient was started on Ancef. Subjective: Patient reporting productive cough today otherwise no new complaints. Labs and imaging reviewed. Review of Systems Review of Systems: All systems reviewed & are unremarkable except as noted in HPI and below Constitutional: Constitutional: Reports as per HPI and Reports no additional constitutional complaints Eyes: Eyes: Reports as per HPI and Reports no additional eye complaints ENT: Reports system reviewed and no additional complaints, except as documented and Reports as per HPI Cardiovascular: Cardiovascular: Reports as per HPI and Reports no additional cardiovascular complaints Respiratory: Respiratory: Reports as per HPI and Reports no additional respiratory complaints Gastrointestinal: Gastrointestinal: Reports as per HPI and Reports no additional gastrointestinal complaints Genitourinary: Genitourinary: Reports no additional male genitourinary complaints and Reports as per HPI Musculoskeletal: Musculoskeletal: Reports no additional musculoskeletal complaints and Reports as per HPI Integumentary/Breasts: Skin/Breast: Reports system reviewed and no additional complaints, except as docu and Reports as per HPI Neurologic: Reports system reviewed and no additional complaints, except as documented and Reports as per HPI Psychiatric: Psychiatric: Reports no additional psychiatric complaints and Reports as per HPI Exam Narrative: General: In no acute distress, well nourished Cardiac: Normal S1 and S2. No murmur, gallops or friction rubs, peripheral pulses intact. Respiratory: Lungs clear to auscultation, no adventitious lung sounds, currently on room air Gastrointestinal: soft, non-distended, non-tender, normoactive bowel sounds. : voiding without difficulty clear vic urine Skin: Left lower extremity swelling with redness and warmth, popped blisters that are draining. Neuro: Alert and oriented x4 Objective Data Vital Signs Vital Signs: Vital Signs - 24 hr 08/08/24 13:42 08/08/24 20:00 08/08/24 20:30 Temperature 97.4 F L 98.4 F Pulse Rate 87 88 Respiratory Rate 20 18 Blood Pressure 143/70 H 139/67 Pulse Oximetry 94 95 Oxygen Delivery Room Air 08/09/24 06:26 08/09/24 08:22 Temperature 97.6 F Pulse Rate 85 Respiratory Rate 18 Blood Pressure 148/62 H Pulse Oximetry 95 Oxygen Delivery Room Air Intake/Output Intake/Output: Intake & Output 12/09/24 08/07/24 08/08/24 08/09/24 23:59 23:59 23:59 23:59 Intake Total 1540 1550 800 Output Total 1250 0232 6424 Balance 290 -340 -772 Meds/Results Medications: Active Medications Generic Name Dose Route Start Last Admin Trade Name Freq PRN Reason Stop Dose Admin Acetaminophen 650 mg 08/07/24 14:59 Acetaminophen 325 Mg Tablet PO Q4H PRN Mild Pain (1-3) or Fever Hydrocodone Bitart/Acetaminophen 1 tab 08/07/24 14:59 08/08/24 07:57 Hydrocodone/Acetaminophen (*Crx) 5-325 Mg Tablet PO 1 tab Q4H PRN Administration Moderate Pain (4-6) Albuterol 2 puff 08/08/24 22:13 08/09/24 08:04 Albuterol Sulfate (*Sp) Aerosol 1 Puff INHALATION 2 puff Q6HRT PRN Administration Shortness Of Breath Ascorbic Acid 500 mg 08/08/24 09:00 08/09/24 08:21 Ascorbic Acid 500 Mg Tablet PO 500 mg DAILY KAVIN Administration Candesartan Cilexetil 32 mg 08/08/24 09:00 08/09/24 08:21 Candesartan Cilexetil 16 Mg Tablet PO 32 mg QAM KAVIN Administration Cyanocobalamin 1,000 mcg 08/08/24 09:00 08/09/24 08:22 Cyanocobalamin 1,000 Mcg Tablet PO 1,000 mcg QAM KAVIN Administration Dextrose 12.5 gm 08/07/24 12:06 Dextrose 50% 25 Gm/50 Ml Syringe IV PUSH PRN PRN Hypoglycemia Protocol Dextrose 12.5 gm 08/07/24 15:01 Dextrose 50% 25 Gm/50 Ml Syringe IV PUSH PRN PRN Hypoglycemia Protocol Enoxaparin Sodium 40 mg 08/08/24 09:00 08/09/24 08:22 Enoxaparin 40 Mg/0.4 Ml Syringe SUB-Q 40 mg DAILY KAVIN Administration Furosemide 40 mg 08/08/24 17:00 08/09/24 08:22 Furosemide Inj 40 Mg/4 Ml Vial IV PUSH 40 mg BID KAVIN Administration Glucagon 1 mg 08/07/24 12:06 Glucagon For Inj 1 Mg Vial IM PRN PRN Hypoglycemia Protocol Glucagon 1 mg 08/07/24 15:01 Glucagon For Inj 1 Mg Vial IM PRN PRN Hypoglycemia Protocol Glucose 15 gm 08/07/24 12:06 Glucose Oral Gel 15 Gm Of Glucse In 37.5 Gm Tube PO PRN PRN Hypoglycemia Protocol Glucose 15 gm 08/07/24 15:01 Glucose Oral Gel 15 Gm Of Glucse In 37.5 Gm Tube PO PRN PRN Hypoglycemia Protocol Guaifenesin/Dextromethorphan 10 ml 08/07/24 22:14 08/08/24 21:25 Guaifenesin/Dextromethorphan 10 Ml Udc PO 10 ml Q4H PRN Administration Cough Dextrose 1,000 mls @ 100 mls/hr 08/07/24 12:06 Dextrose 5% 1,000 Ml IVPB PRN PRN Hypoglycemia Protocol Dextrose 1,000 mls @ 100 mls/hr 08/07/24 15:01 Dextrose 5% 1,000 Ml IVPB PRN PRN Hypoglycemia Protocol Vancomycin HCl 1,500 mg in 500 mls @ 250 mls/hr 08/08/24 16:00 08/09/24 10:34 Vancomycin 1,500 Mg/Ns 500 Ml IVPB 250 mls/hr Q18H KAVIN Administration Cefazolin Sodium 2 gm in 50 mls @ 100 mls/hr 08/08/24 15:30 08/09/24 06:02 Ancef 2 Gm/D5w 50 Ml IVPB 100 mls/hr Q8HR KAVIN Administration Insulin Aspart 3 - 6 units 08/07/24 17:00 08/09/24 10:34 Insulin Aspart (*Bkc) 100 Units/Ml SUB-Q Not Given TIDWM KAVIN Protocol Loratadine 10 mg 08/08/24 09:00 08/09/24 08:22 Loratadine 10 Mg Tablet PO 10 mg QAM KAVIN Administration Morphine Sulfate 2 mg 08/07/24 14:59 Morphine Sulfate (*Crx) 2 Mg/Ml Inj IV PUSH Q4H PRN Pain Rated 7-10 Multivitamins/Calcium 1 tablet 08/08/24 09:00 08/09/24 08:22 Therapeutic Multivitamins/Minerals Tab (*Bkc) PO 1 tablet DAILY KAVIN Administration Naloxone HCl 0.1 mg 08/07/24 14:59 Naloxone Hcl 0.4 Mg/Ml Vial IV PUSH Q2M PRN Opiate Reversal Ondansetron HCl 4 mg 08/07/24 14:59 Ondansetron Inj 4 Mg/2 Ml Vial IV PUSH Q6H PRN Nausea And Vomiting Vitamin D 2,000 units 08/08/24 09:00 08/09/24 08:22 Cholecalciferol 1,000 Units Tablet PO 2,000 units DAILY KAVIN Administration Radiology Results: ITS Impressions Tibia/Fibula X-Ray 08/07/24 00:14 IMPRESSION: No acute osseous finding the left tibia/fibula. Venous Doppler Study 08/07/24 08:59 IMPRESSION: Negative left lower extremity venous US. No deep vein thrombosis. Tibia/Fibula CT 08/08/24 15:30 IMPRESSION: 1. Likely cellulitis with skin thickening and diffuse subcutaneous edema throughout the left lower leg and extending over the dorsum of the foot. No abscess. 2. At least moderate osteoarthritis at the medial and lateral margins of the left knee, severity of which could be underestimated on nonweightbearing imaging. 3. Chronic Achilles tendinosis. Labs Labs: Laboratory Results - last 24 hr 08/08/24 08/08/24 08/09/24 16:48 20:35 04:58 WBC 20.2 H RBC 4.79 Hgb 13.0 L Hct 39.5 L MCV 82.5 MCH 27.1 MCHC 32.9 RDW 16.6 H Plt Count 263 MPV 10.3 Immature Gran % (Auto) 3.9 H Neut % (Auto) 78.0 H Lymph % (Auto) 9.4 L [place] % (Auto) 8.1 Eos % (Auto) 0.2 Baso % (Auto) 0.4 Lymph # (Auto) 1.89 [place] # (Auto) 1.6 H Eos # (Auto) 0.0 Baso # (Auto) 0.1 Abs Immat Gran (auto) 0.78 H Absolute Neuts (auto) 15.7 H Absolute Nucleated RBC 0.000 Nucleated RBC % 0.0 Sodium 137 Potassium 3.8 Chloride 102 Carbon Dioxide 27 Anion Gap 8 BUN 25 H Creatinine 1.30 Estim Creat Clear Calc 69 Estimated GFR 55 L Glucose 108 POC Capillary Glucose 101 98 Calcium 8.6 Total Bilirubin 1.1 AST 25 ALT 16 Alkaline Phosphatase 222 H Total Protein 7.0 Albumin 3.4 L 08/09/24 08/09/24 07:47 11:32 WBC RBC Hgb Hct MCV MCH MCHC RDW Plt Count MPV Immature Gran % (Auto) Neut % (Auto) Lymph % (Auto) [place] % (Auto) Eos % (Auto) Baso % (Auto) Lymph # (Auto) [place] # (Auto) Eos # (Auto) Baso # (Auto) Abs Immat Gran (auto) Absolute Neuts (auto) Absolute Nucleated RBC Nucleated RBC % Sodium Potassium Chloride Carbon Dioxide Anion Gap BUN Creatinine Estim Creat Clear Calc Estimated GFR Glucose POC Capillary Glucose 110 H 122 H Calcium Total Bilirubin AST ALT Alkaline Phosphatase Total Protein Albumin Quality VTE Prophylaxis VTE prophylaxis: pharmacologic ordered
[2024-08-09 12:59] LABS: NT Pro B Type Natriuretic Pept 515 pg/mL (19.9-100)
[2024-08-09 13:58] VITALS: BP 133/59; PULSE 87; RESP 24; TEMP 36.5; O2SAT 96
[2024-08-09] MEDS: PIPERACILLN/TAZ 3.375GM/NS50ML 3.375 GM/50 ML BAG IVPB ×2 (16:45→21:38)
[2024-08-09 16:58] LABS: Glucose Point of Care 110 mg/dl (65-105)
[2024-08-09 20:42] VITALS: BP 148/64; PULSE 86; RESP 16; TEMP 36.5; O2SAT 94
[2024-08-09] MEDS: guaiFENesin/DEXTROMETHORPHAN 10 ML UDC PO (21:38)
[2024-08-09] MEDS: LINEZOLID 600 MG TABLET PO (21:38)
[2024-08-09 22:11] LABS: Glucose Point of Care 114 mg/dl (65-105)
[2024-08-10] VITALS (11 sets, daily range): BP systolic 135–146; BP diastolic 60–77; PULSE 86–91; RESP 16–20; TEMP 36.3–37.2; O2SAT 90–96
[2024-08-10] MEDS: PIPERACILLN/TAZ 3.375GM/NS50ML 3.375 GM/50 ML BAG IVPB ×4 (02:31→21:26)
[2024-08-10 05:22] LABS: Basophils Absolute Auto 0.1 K/mm3 (0.0-0.1); Basophils Percent Auto 0.4 % (0.2-1.2); Eosinophils Percent Auto 0.2 % (0-4.4); Hematocrit 37.5 % (42.0-52.0); Hemoglobin 12.6 g/dL (14.0-18.0); Immature Granulocyte Absolute 0.82 K/mm3 (0.00-0.031); Immature Granulocyte Percent A 3.7 % (0-0.5); Lymphocytes Absolute Auto 1.82 K/mm3 (0.9-3.2); Lymphocytes Percent Auto 8.2 % (18.3-44.2); Mean Corpuscular HGB Conc 33.6 g/dl (32-36); Mean Corpuscular Hemoglobin 27.3 pg (26-34); Mean Corpuscular Volume 81.2 fl (80-100); Mean Platelet Volume 10.1 fl (7.4-10.4); Monocytes Absolute Auto 1.8 K/mm3 (0.1-0.6); Monocytes Percent Auto 7.9 % (2.6-8.5); Neutrophils Absolute Auto 17.8 K/mm3 (1.3-6.7); Neutrophils Percent Auto 79.6 % (45.5-73.1); Platelet Count Result 310 k/mm3 (150-375); Red Blood Count 4.62 M/mm3 (4.6-6.20); Red Cell Distribution Width 16.1 % (11.5-14.5); White Blood Count 22.3 K/mm3 (4.5-10.0)
[2024-08-10 05:34] LABS: Alanine Aminotransferase 11 U/L (6-50); Albumin Level 3.2 g/dL (3.5-5.1); Alkaline Phosphatase 192 U/L (38-126); Anion Gap 8 mmol/L (4-12); Aspartate Amino Transferase 22 U/L (17-59); Bilirubin,Total 1.3 mg/dL (0.2-1.3); Blood Urea Nitrogen 24 mg/dL (9-20); Calcium 8.4 mg/dL (8.4-10.2); Carbon Dioxide 30 mmol/L (22-30); Chloride 100 mmol/L (98-107); Estimated CRCL calculation 74 ml/min; Estimated Glomerular Filt Rate 60; Glucose 124 mg/dL (65-110); Potassium 3.3 mmol/L (3.4-5.0); Sodium 138 mmol/L (137-145)
--- NOTE | 2024-08-10 07:31 | P.PNIM_ITS ---
Progress Note: A&P Assessment and Plan (1) Cellulitis: Code(s): L03.90 - Cellulitis, unspecified Status: Acute Assessment and Plan: Patient quit taking his medications while on vacation for 3 weeks cellulitis of the LLE likely secondary to his diabetes, not taking his Lasix, and reported he hit it on multiple wheelchair bars. * Blood cultures showing no growth to date * Wound culture pending * tib-fib x-ray no acute of with this finding * venous Doppler negative for DVT * elevate extremity when at rest on 2 pillows * Continue pain control * CT of left lower extremity with contrast shown likely cellulitis with skin thickening and diffuse subcutaneous edema throughout the left lower leg and extending over the dorsum of the foot, no abscess, moderate osteoarthritis at the medial and lateral margins of the left knee, chronic Achilles tendonitis * WBC increased to 22.3 * Change Ancef and Vancomycin to Linezolid and Zosyn considering that the leg is not looking better and WBC continues to climb. (2) CHF (congestive heart failure): Code(s): I50.9 - Heart failure, unspecified Status: Acute Assessment and Plan: * fluid restrict diet 1500 ml daily * continue IV Lasix b.i.d. * initial proBNP 827 * will recheck proBNP today (3) Diabetes: Code(s): E11.9 - Type 2 diabetes mellitus without complications Status: Acute Assessment and Plan: * Blood sugars ranging 114-124 * Hgb A1C 6.1 * Accu checks AC/HS * Moderate dose SSI ordered * Hold metformin and glimepiride * hypoglycemic protocol in place * Diabetic diet ordered (4) Hypertension: Code(s): I10 - Essential (primary) hypertension Status: Acute Assessment and Plan: * Blood pressure ranging 133/59-148/64 * Continue Candesartan Time Spent With Patient Time with patient: Greater than 35 minutes Subjective Date/time seen: 08/10/24 07:31 Interval history: Interval history: This is a 69-year-old male who presented to the hospital on 08/07/2024 with cellulitis to the left lower extremity. Workup in the hospital included tib fib x-ray which was negative for any acute osseous process. Venous Doppler study was also obtained and was negative for DVT. Initial labs showed a white blood cell count of 18.8, hemoglobin 13.7, creatinine 1.40, EGFR 50, alkaline phos 188, proBNP 827. Blood cultures were obtained and are pending. Patient was started on Ancef and Vancomycin and then transitioned to Linezolid and Zosyn due to WBC increasing and cellulitis worsening on 08/09/14 Subjective: No change in cellulitis today. WBC increasing. Discussed with infectious disease pharmacist and we will continue Linezolid and Zosyn for now. Patient denies any new complaints today. Labs reviewed. Review of Systems Review of Systems: All systems reviewed & are unremarkable except as noted in HPI and below Constitutional: Constitutional: Reports as per HPI and Reports no additional constitutional complaints Eyes: Eyes: Reports as per HPI and Reports no additional eye complaints ENT: Reports system reviewed and no additional complaints, except as documented and Reports as per HPI Cardiovascular: Cardiovascular: Reports as per HPI and Reports no additional cardiovascular complaints Respiratory: Respiratory: Reports as per HPI and Reports no additional respiratory complaints Gastrointestinal: Gastrointestinal: Reports as per HPI and Reports no additional gastrointestinal complaints Genitourinary: Genitourinary: Reports no additional male genitourinary complaints and Reports as per HPI Musculoskeletal: Musculoskeletal: Reports no additional musculoskeletal complaints and Reports as per HPI Integumentary/Breasts: Skin/Breast: Reports system reviewed and no additional complaints, except as docu and Reports as per HPI Neurologic: Reports system reviewed and no additional complaints, except as documented and Reports as per HPI Psychiatric: Psychiatric: Reports no additional psychiatric complaints and Reports as per HPI Exam Narrative: General: In no acute distress, well nourished Cardiac: Normal S1 and S2. No murmur, gallops or friction rubs, peripheral pulses intact. Respiratory: Lungs clear to auscultation, no adventitious lung sounds, currently on room air Gastrointestinal: soft, non-distended, non-tender, normoactive bowel sounds. : voiding without difficulty cloudy vic urine Skin: Left lower extremity swelling with redness and warmth, open wounds to left lower extremities draining serous drainage. Neuro: Alert and oriented x4 Objective Data Vital Signs Vital Signs: Vital Signs - 24 hr 08/09/24 08:22 08/09/24 13:58 08/09/24 20:00 Temperature 97.7 F Pulse Rate 87 Respiratory Rate 24 H Blood Pressure 133/59 L Pulse Oximetry 96 Oxygen Delivery Room Air Room Air 08/09/24 20:42 08/10/24 04:58 Temperature 97.7 F 98.9 F Pulse Rate 86 88 Respiratory Rate 16 16 Blood Pressure 148/64 H 146/77 H Pulse Oximetry 94 94 Oxygen Delivery Intake/Output Intake/Output: Intake & Output 08/07/24 08/08/24 08/09/24 08/10/24 23:59 23:59 23:59 23:59 Intake Total 1540 1550 1740 440 Output Total 1250 2075 3100 400 Balance 290 -525 -1360 40 Meds/Results Medications: Active Medications Generic Name Dose Route Start Last Admin Trade Name Freq PRN Reason Stop Dose Admin Acetaminophen 650 mg 08/07/24 14:59 Acetaminophen 325 Mg Tablet PO Q4H PRN Mild Pain (1-3) or Fever Hydrocodone Bitart/Acetaminophen 1 tab 08/07/24 14:59 08/08/24 07:57 Hydrocodone/Acetaminophen (*Crx) 5-325 Mg Tablet PO 1 tab Q4H PRN Administration Moderate Pain (4-6) Albuterol 2 puff 08/08/24 22:13 08/09/24 21:52 Albuterol Sulfate (*Sp) Aerosol 1 Puff INHALATION 2 puff Q6HRT PRN Administration Shortness Of Breath Ascorbic Acid 500 mg 08/08/24 09:00 08/09/24 08:21 Ascorbic Acid 500 Mg Tablet PO 500 mg DAILY KAVIN Administration Candesartan Cilexetil 32 mg 08/08/24 09:00 08/09/24 08:21 Candesartan Cilexetil 16 Mg Tablet PO 32 mg QAM KAVIN Administration Cyanocobalamin 1,000 mcg 08/08/24 09:00 08/09/24 08:22 Cyanocobalamin 1,000 Mcg Tablet PO 1,000 mcg QAM KAVIN Administration Dextrose 12.5 gm 08/07/24 12:06 Dextrose 50% 25 Gm/50 Ml Syringe IV PUSH PRN PRN Hypoglycemia Protocol Dextrose 12.5 gm 08/07/24 15:01 Dextrose 50% 25 Gm/50 Ml Syringe IV PUSH PRN PRN Hypoglycemia Protocol Enoxaparin Sodium 40 mg 08/08/24 09:00 08/09/24 08:22 Enoxaparin 40 Mg/0.4 Ml Syringe SUB-Q 40 mg DAILY KAVIN Administration Furosemide 40 mg 08/08/24 17:00 08/09/24 16:44 Furosemide Inj 40 Mg/4 Ml Vial IV PUSH 40 mg BID KAVIN Administration Glucagon 1 mg 08/07/24 12:06 Glucagon For Inj 1 Mg Vial IM PRN PRN Hypoglycemia Protocol Glucagon 1 mg 08/07/24 15:01 Glucagon For Inj 1 Mg Vial IM PRN PRN Hypoglycemia Protocol Glucose 15 gm 08/07/24 12:06 Glucose Oral Gel 15 Gm Of Glucse In 37.5 Gm Tube PO PRN PRN Hypoglycemia Protocol Glucose 15 gm 08/07/24 15:01 Glucose Oral Gel 15 Gm Of Glucse In 37.5 Gm Tube PO PRN PRN Hypoglycemia Protocol Guaifenesin/Dextromethorphan 10 ml 08/07/24 22:14 08/09/24 21:38 Guaifenesin/Dextromethorphan 10 Ml Udc PO 10 ml Q4H PRN Administration Cough Dextrose 1,000 mls @ 100 mls/hr 08/07/24 12:06 Dextrose 5% 1,000 Ml IVPB PRN PRN Hypoglycemia Protocol Dextrose 1,000 mls @ 100 mls/hr 08/07/24 15:01 Dextrose 5% 1,000 Ml IVPB PRN PRN Hypoglycemia Protocol Piperacillin/Tazobactam/Dextrose 3.375 gm in 50 mls @ 100 mls/hr 08/09/24 15:00 08/10/24 03:01 Zosyn 3.375 Gm/Ns 50 Ml IVPB Infused Q6H KAVIN Infusion Insulin Aspart 3 - 6 units 08/07/24 17:00 08/09/24 17:16 Insulin Aspart (*Bkc) 100 Units/Ml SUB-Q Not Given TIDWM [facility] Protocol Linezolid 600 mg 08/09/24 21:00 08/09/24 21:38 Linezolid 600 Mg Tablet PO 600 mg Q12HR KAVIN Administration Loratadine 10 mg 08/08/24 09:00 08/09/24 08:22 Loratadine 10 Mg Tablet PO 10 mg QAM KAVIN Administration Morphine Sulfate 2 mg 08/07/24 14:59 Morphine Sulfate (*Crx) 2 Mg/Ml Inj IV PUSH Q4H PRN Pain Rated 7-10 Multivitamins/Calcium 1 tablet 08/08/24 09:00 08/09/24 08:22 Therapeutic Multivitamins/Minerals Tab (*Bkc) PO 1 tablet DAILY KAVIN Administration Naloxone HCl 0.1 mg 08/07/24 14:59 Naloxone Hcl 0.4 Mg/Ml Vial IV PUSH Q2M PRN Opiate Reversal Ondansetron HCl 4 mg 08/07/24 14:59 Ondansetron Inj 4 Mg/2 Ml Vial IV PUSH Q6H PRN Nausea And Vomiting Vitamin D 2,000 units 08/08/24 09:00 08/09/24 08:22 Cholecalciferol 1,000 Units Tablet PO 2,000 units DAILY KAVIN Administration Radiology Results: ITS Impressions Tibia/Fibula X-Ray 08/07/24 00:14 IMPRESSION: No acute osseous finding the left tibia/fibula. Venous Doppler Study 08/07/24 08:59 IMPRESSION: Negative left lower extremity venous US. No deep vein thrombosis. Tibia/Fibula CT 08/08/24 15:30 IMPRESSION: 1. Likely cellulitis with skin thickening and diffuse subcutaneous edema throughout the left lower leg and extending over the dorsum of the foot. No abscess. 2. At least moderate osteoarthritis at the medial and lateral margins of the left knee, severity of which could be underestimated on nonweightbearing imaging. 3. Chronic Achilles tendinosis. Chest X-Ray 08/09/24 14:33 Impression: 1: Mild pulmonary vascular congestion. Labs Labs: Laboratory Results - last 24 hr 08/09/24 08/09/24 08/09/24 04:58 07:47 11:32 WBC 20.2 H RBC 4.79 Hgb 13.0 L Hct 39.5 L MCV 82.5 MCH 27.1 MCHC 32.9 RDW 16.6 H Plt Count 263 MPV 10.3 Immature Gran % (Auto) 3.9 H Neut % (Auto) 78.0 H Lymph % (Auto) 9.4 L [place] % (Auto) 8.1 Eos % (Auto) 0.2 Baso % (Auto) 0.4 Lymph # (Auto) 1.89 [place] # (Auto) 1.6 H Eos # (Auto) 0.0 Baso # (Auto) 0.1 Abs Immat Gran (auto) 0.78 H Absolute Neuts (auto) 15.7 H Absolute Nucleated RBC 0.000 Nucleated RBC % 0.0 Sodium Potassium Chloride Carbon Dioxide Anion Gap BUN Creatinine Estim Creat Clear Calc Estimated GFR Glucose POC Capillary Glucose 110 H 122 H Calcium Total Bilirubin AST ALT Alkaline Phosphatase NT-Pro-B Natriuret Pep Total Protein Albumin 08/09/24 08/09/24 08/09/24 12:23 16:33 20:44 WBC RBC Hgb Hct MCV MCH MCHC RDW Plt Count MPV Immature Gran % (Auto) Neut % (Auto) Lymph % (Auto) [place] % (Auto) Eos % (Auto) Baso % (Auto) Lymph # (Auto) [place] # (Auto) Eos # (Auto) Baso # (Auto) Abs Immat Gran (auto) Absolute Neuts (auto) Absolute Nucleated RBC Nucleated RBC % Sodium Potassium Chloride Carbon Dioxide Anion Gap BUN Creatinine Estim Creat Clear Calc Estimated GFR Glucose POC Capillary Glucose 110 H 114 H Calcium Total Bilirubin AST ALT Alkaline Phosphatase NT-Pro-B Natriuret Pep 515 H Total Protein Albumin 08/10/24 04:47 WBC 22.3 H RBC 4.62 Hgb 12.6 L Hct 37.5 L MCV 81.2 MCH 27.3 MCHC 33.6 RDW 16.1 H Plt Count 310 MPV 10.1 Immature Gran % (Auto) 3.7 H Neut % (Auto) 79.6 H Lymph % (Auto) 8.2 L [place] % (Auto) 7.9 Eos % (Auto) 0.2 Baso % (Auto) 0.4 Lymph # (Auto) 1.82 [place] # (Auto) 1.8 H Eos # (Auto) 0.0 Baso # (Auto) 0.1 Abs Immat Gran (auto) 0.82 H Absolute Neuts (auto) 17.8 H Absolute Nucleated RBC 0.000 Nucleated RBC % 0.0 Sodium 138 Potassium 3.3 L Chloride 100 Carbon Dioxide 30 Anion Gap 8 BUN 24 H Creatinine 1.20 Estim Creat Clear Calc 74 Estimated GFR 60 Glucose 124 H POC Capillary Glucose Calcium 8.4 Total Bilirubin 1.3 AST 22 ALT 11 Alkaline Phosphatase 192 H NT-Pro-B Natriuret Pep Total Protein 7.0 Albumin 3.2 L Quality VTE Prophylaxis VTE prophylaxis: pharmacologic ordered
[2024-08-10 08:05] LABS: Glucose Point of Care 121 mg/dl (65-105)
[2024-08-10] MEDS: ASCORBIC ACID 500 MG TABLET PO (08:31)
[2024-08-10] MEDS: POTASSIUM CHLORIDE 20 MEQ ER TABLET 40 MEQ PO (08:31)
[2024-08-10] MEDS: LORATADINE 10 MG TABLET PO (08:31)
[2024-08-10] MEDS: LINEZOLID 600 MG TABLET PO ×2 (08:31→21:26)
[2024-08-10] MEDS: FUROSEMIDE INJ 40 MG/4 ML VIAL IV PUSH ×2 (08:31→16:49)
[2024-08-10] MEDS: CANDESARTAN CILEXETIL 16 MG TABLET 32 MG PO (08:31)
[2024-08-10] MEDS: CYANOCOBALAMIN 1,000 MCG TABLET 1000 MCG PO (08:31)
[2024-08-10] MEDS: THERAPEUTIC MULTIVITAMINS/MINERALS TAB (*BKC) 1 TABLET PO (08:31)
[2024-08-10] MEDS: CHOLECALCIFEROL 1,000 UNITS TABLET 2000 UNITS PO (08:31)
[2024-08-10] MEDS: ENOXAPARIN 40 MG/0.4 ML SYRINGE SUB-Q (08:37)
[2024-08-10 09:38] LABS: Add Urine Microscopic? YES; Appearance Urine Clear (Clear); Bilirubin Urine Negative (Negative); Blood Urine Negative (Negative); Color Urine Yellow (Yellow); Glucose Urine UA Negative (Negative); Ketones Urine 2+ mg/dL (Negative); Leukocyte Esterase Ur Negative LEU/UL (Negative); Nitrate Urine Negative (Negative); Protein Urine 2+ mg/dL (Negative); Specific Grav Ur 1.018 (1.001-1.035); Urobilinogen Urine 0.2 mg/dL (<2.0); pH Urine 5.5 (5.0-9.0)
[2024-08-10] MEDS: ALBUTEROL SULFATE (*SP) AEROSOL 1 PUFF 2 PUFF INHALATION (10:47)
[2024-08-10 12:21] LABS: Glucose Point of Care 133 mg/dl (65-105)
[2024-08-10] MEDS: IPRATROPIUM 0.5 MG/ALBUTEROL SULFATE 2.5 MG AMPUL.NEB 3 ML INHALATION ×2 (14:14→20:05)
[2024-08-10 16:49] LABS: Glucose Point of Care 116 mg/dl (65-105)
[2024-08-10 21:04] LABS: Glucose Point of Care 144 mg/dl (65-105)
[2024-08-10 21:48] LABS: Vancomycin Trough < 5.0 ug/mL (10.0-20.0)
[2024-08-11] VITALS (10 sets, daily range): BP systolic 106–135; BP diastolic 64–70; PULSE 90–96; RESP 16–24; TEMP 36.2–36.5; O2SAT 88–93
[2024-08-11] MEDS: IPRATROPIUM 0.5 MG/ALBUTEROL SULFATE 2.5 MG AMPUL.NEB 3 ML INHALATION ×4 (02:07→20:25)
[2024-08-11] MEDS: PIPERACILLN/TAZ 3.375GM/NS50ML 3.375 GM/50 ML BAG IVPB ×4 (04:14→20:18)
[2024-08-11 05:25] LABS: Basophils Absolute Auto 0.1 K/mm3 (0.0-0.1); Basophils Percent Auto 0.5 % (0.2-1.2); Eosinophils Absolute Auto 0.1 K/mm3 (0-0.3); Eosinophils Percent Auto 0.3 % (0-4.4); Hematocrit 37.7 % (42.0-52.0); Hemoglobin 12.7 g/dL (14.0-18.0); Immature Granulocyte Absolute 0.86 K/mm3 (0.00-0.031); Immature Granulocyte Percent A 4.9 % (0-0.5); Lymphocytes Absolute Auto 2.06 K/mm3 (0.9-3.2); Lymphocytes Percent Auto 11.7 % (18.3-44.2); Mean Corpuscular HGB Conc 33.7 g/dl (32-36); Mean Corpuscular Hemoglobin 27.5 pg (26-34); Mean Corpuscular Volume 81.6 fl (80-100); Mean Platelet Volume 9.9 fl (7.4-10.4); Monocytes Absolute Auto 1.7 K/mm3 (0.1-0.6); Monocytes Percent Auto 9.7 % (2.6-8.5); Neutrophils Absolute Auto 12.8 K/mm3 (1.3-6.7); Neutrophils Percent Auto 72.9 % (45.5-73.1); Platelet Count Result 347 k/mm3 (150-375); Red Blood Count 4.62 M/mm3 (4.6-6.20); Red Cell Distribution Width 16.3 % (11.5-14.5); White Blood Count 17.5 K/mm3 (4.5-10.0)
[2024-08-11 05:43] LABS: Alanine Aminotransferase 13 U/L (6-50); Albumin Level 3.3 g/dL (3.5-5.1); Alkaline Phosphatase 194 U/L (38-126); Anion Gap 6 mmol/L (4-12); Aspartate Amino Transferase 27 U/L (17-59); Bilirubin,Total 1.4 mg/dL (0.2-1.3); Blood Urea Nitrogen 26 mg/dL (9-20); Calcium 8.6 mg/dL (8.4-10.2); Carbon Dioxide 32 mmol/L (22-30); Chloride 100 mmol/L (98-107); Estimated CRCL calculation 69 ml/min; Estimated Glomerular Filt Rate 55; Glucose 129 mg/dL (65-110); Potassium 3.1 mmol/L (3.4-5.0); Sodium 138 mmol/L (137-145)
--- NOTE | 2024-08-11 07:14 | PM.IMPN ---
Progress Note: A&P Assessment and Plan (1) Cellulitis: Code(s): L03.90 - Cellulitis, unspecified Status: Acute Assessment and Plan: Patient quit taking his medications while on vacation for 3 weeks cellulitis of the LLE likely secondary to his diabetes, not taking his Lasix, and reported he hit it on multiple wheelchair bars. Blood cultures showing no growth to date Wound culture pending tib-fib x-ray no acute of with this finding venous Doppler negative for DVT elevate extremity when at rest on 2 pillows Continue pain control CT of left lower extremity with contrast shown likely cellulitis with skin thickening and diffuse subcutaneous edema throughout the left lower leg and extending over the dorsum of the foot, no abscess, moderate osteoarthritis at the medial and lateral margins of the left knee, chronic Achilles tendonitis WBC Now trending downward to 17.5 today continue linezolid and Zosyn Swelling and redness improving (2) CHF (congestive heart failure): Code(s): I50.9 - Heart failure, unspecified Status: Acute Assessment and Plan: DC fluid restriction switch IV lasix to oral BNP 827> 515 (3) Diabetes: Code(s): E11.9 - Type 2 diabetes mellitus without complications Status: Acute Assessment and Plan: Blood sugars ranging 126-144 Hgb A1C 6.1 Accu checks AC/HS Moderate dose SSI ordered Hold metformin and glimepiride hypoglycemic protocol in place Diabetic diet ordered (4) Hypertension: Code(s): I10 - Essential (primary) hypertension Status: Acute Assessment and Plan: Blood pressure ranging 135/60 to 148/62 Continue Candesartan Time Spent With Patient Time with patient: 15 - 25 minutes Subjective Date/time seen: 08/11/24 07:14 Interval history: Interval history: This is a 69-year-old male who presented to the hospital on 08/07/2024 with cellulitis to the left lower extremity. Workup in the hospital included tib fib x-ray which was negative for any acute osseous process. Venous Doppler study was also obtained and was negative for DVT. Initial labs showed a white blood cell count of 18.8, hemoglobin 13.7, creatinine 1.40, EGFR 50, alkaline phos 188, proBNP 827. Blood cultures were obtained and are pending. Patient was started on Ancef and Vancomycin and then transitioned to Linezolid and Zosyn due to WBC increasing and cellulitis worsening on 08/09/14 Subjective: white blood cell count improving today. Patient reports coughing spells last night. Swelling and redness improved. Review of Systems Review of Systems: All systems reviewed & are unremarkable except as noted in HPI and below Constitutional: Constitutional: Reports as per HPI and Reports no additional constitutional complaints Eyes: Eyes: Reports as per HPI and Reports no additional eye complaints ENT: Reports system reviewed and no additional complaints, except as documented and Reports as per HPI Cardiovascular: Cardiovascular: Reports as per HPI and Reports no additional cardiovascular complaints Respiratory: Respiratory: Reports as per HPI and Reports no additional respiratory complaints Gastrointestinal: Gastrointestinal: Reports as per HPI and Reports no additional gastrointestinal complaints Genitourinary: Genitourinary: Reports no additional male genitourinary complaints and Reports as per HPI Musculoskeletal: Musculoskeletal: Reports no additional musculoskeletal complaints and Reports as per HPI Integumentary/Breasts: Skin/Breast: Reports system reviewed and no additional complaints, except as docu and Reports as per HPI Neurologic: Reports system reviewed and no additional complaints, except as documented and Reports as per HPI Psychiatric: Psychiatric: Reports no additional psychiatric complaints and Reports as per HPI Exam Narrative: General: In no acute distress, well nourished Cardiac: Normal S1 and S2. No murmur, gallops or friction rubs, peripheral pulses intact. Respiratory: Lungs clear to auscultation, no adventitious lung sounds, currently on room air Gastrointestinal: soft, non-distended, non-tender, normoactive bowel sounds. : voiding without difficulty cloudy vic urine Skin: Left lower extremity swelling improved, redness improved. Neuro: Alert and oriented x4 Objective Data Vital Signs Vital Signs: Vital Signs - 24 hr 08/10/24 08:30 08/10/24 08:39 08/10/24 10:49 Temperature Pulse Rate 89 91 Respiratory Rate 20 Blood Pressure 144/60 H Pulse Oximetry 96 92 Oxygen Delivery Room Air 08/10/24 14:19 08/10/24 14:19 08/10/24 14:23 Temperature Pulse Rate 86 88 Respiratory Rate 20 20 Blood Pressure Pulse Oximetry 94 Oxygen Delivery Room Air 08/10/24 14:41 08/10/24 20:00 08/10/24 20:02 Temperature 97.9 F 97.3 F L Pulse Rate 91 91 91 Respiratory Rate 20 16 16 Blood Pressure 135/60 136/69 Pulse Oximetry 94 90 90 Oxygen Delivery Room Air 08/10/24 20:06 08/10/24 20:06 08/10/24 20:13 Temperature Pulse Rate 87 86 Respiratory Rate 20 20 Blood Pressure Pulse Oximetry 94 Oxygen Delivery Room Air 08/11/24 02:07 08/11/24 02:16 08/11/24 04:40 Temperature 97.2 F L Pulse Rate 94 90 93 Respiratory Rate 20 20 16 Blood Pressure 135/65 Pulse Oximetry 88 L Oxygen Delivery Intake/Output Intake/Output: Intake & Output 08/08/24 08/09/24 08/10/24 08/11/24 23:59 23:59 23:59 23:59 Intake Total 1550 1740 1460 240 Output Total 2075 [address] [facility] -1360 -1315 0 Meds/Results Medications: Active Medications Generic Name Dose Route Start Last Admin Trade Name Freq PRN Reason Stop Dose Admin Acetaminophen 650 mg 08/07/24 14:59 Acetaminophen 325 Mg Tablet PO Q4H PRN Mild Pain (1-3) or Fever Hydrocodone Bitart/Acetaminophen 1 tab 08/07/24 14:59 08/08/24 07:57 Hydrocodone/Acetaminophen (*Crx) 5-325 Mg Tablet PO 1 tab Q4H PRN Administration Moderate Pain (4-6) Albuterol 2 puff 08/08/24 22:13 08/10/24 10:47 Albuterol Sulfate (*Sp) Aerosol 1 Puff INHALATION 2 puff Q6HRT PRN Administration Shortness Of Breath Albuterol/Ipratropium 3 ml 08/10/24 14:00 08/11/24 02:07 Ipratropium 0.5 Mg/Albuterol Sulfate 2.5 Mg Ampul.Neb 3 Ml INHALATION 3 ml Q6HRT KAVIN Administration Ascorbic Acid 500 mg 08/08/24 09:00 08/10/24 08:31 Ascorbic Acid 500 Mg Tablet PO 500 mg DAILY KAVIN Administration Candesartan Cilexetil 32 mg 08/08/24 09:00 08/10/24 08:31 Candesartan Cilexetil 16 Mg Tablet PO 32 mg QAM KAVIN Administration Cyanocobalamin 1,000 mcg 08/08/24 09:00 08/10/24 08:31 Cyanocobalamin 1,000 Mcg Tablet PO 1,000 mcg QAM KAVIN Administration Dextrose 12.5 gm 08/07/24 12:06 Dextrose 50% 25 Gm/50 Ml Syringe IV PUSH PRN PRN Hypoglycemia Protocol Dextrose 12.5 gm 08/07/24 15:01 Dextrose 50% 25 Gm/50 Ml Syringe IV PUSH PRN PRN Hypoglycemia Protocol Enoxaparin Sodium 40 mg 08/08/24 09:00 08/10/24 08:37 Enoxaparin 40 Mg/0.4 Ml Syringe SUB-Q 40 mg DAILY KAVIN Administration Furosemide 40 mg 08/08/24 17:00 08/10/24 16:49 Furosemide Inj 40 Mg/4 Ml Vial IV PUSH 40 mg BID KAVIN Administration Glucagon 1 mg 08/07/24 12:06 Glucagon For Inj 1 Mg Vial IM PRN PRN Hypoglycemia Protocol Glucagon 1 mg 08/07/24 15:01 Glucagon For Inj 1 Mg Vial IM PRN PRN Hypoglycemia Protocol Glucose 15 gm 08/07/24 12:06 Glucose Oral Gel 15 Gm Of Glucse In 37.5 Gm Tube PO PRN PRN Hypoglycemia Protocol Glucose 15 gm 08/07/24 15:01 Glucose Oral Gel 15 Gm Of Glucse In 37.5 Gm Tube PO PRN PRN Hypoglycemia Protocol Guaifenesin/Dextromethorphan 10 ml 08/07/24 22:14 08/09/24 21:38 Guaifenesin/Dextromethorphan 10 Ml Udc PO 10 ml Q4H PRN Administration Cough Dextrose 1,000 mls @ 100 mls/hr 08/07/24 12:06 Dextrose 5% 1,000 Ml IVPB PRN PRN Hypoglycemia Protocol Dextrose 1,000 mls @ 100 mls/hr 08/07/24 15:01 Dextrose 5% 1,000 Ml IVPB PRN PRN Hypoglycemia Protocol Piperacillin/Tazobactam/Dextrose 3.375 gm in 50 mls @ 100 mls/hr 08/09/24 15:00 08/11/24 04:14 Zosyn 3.375 Gm/Ns 50 Ml IVPB 100 mls/hr Q6H KAVIN Administration Insulin Aspart 3 - 6 units 08/07/24 17:00 08/10/24 16:47 Insulin Aspart (*Bkc) 100 Units/Ml SUB-Q Not Given TIDWM KAVIN Protocol Linezolid 600 mg 08/09/24 21:00 08/10/24 21:26 Linezolid 600 Mg Tablet PO 600 mg Q12HR KAVIN Administration Loratadine 10 mg 08/08/24 09:00 08/10/24 08:31 Loratadine 10 Mg Tablet PO 10 mg QAM KAVIN Administration Morphine Sulfate 2 mg 08/07/24 14:59 Morphine Sulfate (*Crx) 2 Mg/Ml Inj IV PUSH Q4H PRN Pain Rated 7-10 Multivitamins/Calcium 1 tablet 08/08/24 09:00 08/10/24 08:31 Therapeutic Multivitamins/Minerals Tab (*Bkc) PO 1 tablet DAILY KAVIN Administration Naloxone HCl 0.1 mg 08/07/24 14:59 Naloxone Hcl 0.4 Mg/Ml Vial IV PUSH Q2M PRN Opiate Reversal Ondansetron HCl 4 mg 08/07/24 14:59 Ondansetron Inj 4 Mg/2 Ml Vial IV PUSH Q6H PRN Nausea And Vomiting Vitamin D 2,000 units 08/08/24 09:00 08/10/24 08:31 Cholecalciferol 1,000 Units Tablet PO 2,000 units DAILY KAVIN Administration Radiology Results: ITS Impressions Tibia/Fibula X-Ray 08/07/24 00:14 IMPRESSION: No acute osseous finding the left tibia/fibula. Venous Doppler Study 08/07/24 08:59 IMPRESSION: Negative left lower extremity venous US. No deep vein thrombosis. Tibia/Fibula CT 08/08/24 15:30 IMPRESSION: 1. Likely cellulitis with skin thickening and diffuse subcutaneous edema throughout the left lower leg and extending over the dorsum of the foot. No abscess. 2. At least moderate osteoarthritis at the medial and lateral margins of the left knee, severity of which could be underestimated on nonweightbearing imaging. 3. Chronic Achilles tendinosis. Chest X-Ray 08/09/24 14:33 Impression: 1: Mild pulmonary vascular congestion. Labs Labs: Laboratory Results - last 24 hr 08/10/24 08/10/24 08/10/24 08:01 09:03 12:07 WBC RBC Hgb Hct MCV MCH MCHC RDW Plt Count MPV Immature Gran % (Auto) Neut % (Auto) Lymph % (Auto) [place] % (Auto) Eos % (Auto) Baso % (Auto) Lymph # (Auto) [place] # (Auto) Eos # (Auto) Baso # (Auto) Abs Immat Gran (auto) Absolute Neuts (auto) Absolute Nucleated RBC Nucleated RBC % Sodium Potassium Chloride Carbon Dioxide Anion Gap BUN Creatinine Estim Creat Clear Calc Estimated GFR Glucose POC Capillary Glucose 121 H 133 H Calcium Total Bilirubin AST ALT Alkaline Phosphatase Total Protein Albumin Urine Color Yellow Urine Appearance Clear Urine pH 5.5 Ur Specific [place] 1.018 Urine Protein 2+ H Urine Glucose (UA) Negative Urine Ketones 2+ H Ur Blood (Man) Negative Urine Nitrate Negative Urine Bilirubin Negative Urine Urobilinogen 0.2 Leukocyte Esterase Rfl Negative Vancomycin Trough 08/10/24 08/10/24 08/10/24 16:44 19:56 21:02 WBC RBC Hgb Hct MCV MCH MCHC RDW Plt Count MPV Immature Gran % (Auto) Neut % (Auto) Lymph % (Auto) [place] % (Auto) Eos % (Auto) Baso % (Auto) Lymph # (Auto) [place] # (Auto) Eos # (Auto) Baso # (Auto) Abs Immat Gran (auto) Absolute Neuts (auto) Absolute Nucleated RBC Nucleated RBC % Sodium Potassium Chloride Carbon Dioxide Anion Gap BUN Creatinine Estim Creat Clear Calc Estimated GFR Glucose POC Capillary Glucose 116 H 144 H Calcium Total Bilirubin AST ALT Alkaline Phosphatase Total Protein Albumin Urine Color Urine Appearance Urine pH Ur Specific [place] Urine Protein Urine Glucose (UA) Urine Ketones Ur Blood (Man) Urine Nitrate Urine Bilirubin Urine Urobilinogen Leukocyte Esterase Rfl Vancomycin Trough < 5.0 L 08/11/24 04:38 WBC 17.5 H RBC 4.62 Hgb 12.7 L Hct 37.7 L MCV 81.6 MCH 27.5 MCHC 33.7 RDW 16.3 H Plt Count 347 MPV 9.9 Immature Gran % (Auto) 4.9 H Neut % (Auto) 72.9 Lymph % (Auto) 11.7 L [place] % (Auto) 9.7 H Eos % (Auto) 0.3 Baso % (Auto) 0.5 Lymph # (Auto) 2.06 [place] # (Auto) 1.7 H Eos # (Auto) 0.1 Baso # (Auto) 0.1 Abs Immat Gran (auto) 0.86 H Absolute Neuts (auto) 12.8 H Absolute Nucleated RBC 0.000 Nucleated RBC % 0.0 Sodium 138 Potassium 3.1 L Chloride 100 Carbon Dioxide 32 H Anion Gap 6 BUN 26 H Creatinine 1.30 Estim Creat Clear Calc 69 Estimated GFR 55 L Glucose 129 H POC Capillary Glucose Calcium 8.6 Total Bilirubin 1.4 H AST 27 ALT 13 Alkaline Phosphatase 194 H Total Protein 8.0 Albumin 3.3 L Urine Color Urine Appearance Urine pH Ur Specific [place] Urine Protein Urine Glucose (UA) Urine Ketones Ur Blood (Man) Urine Nitrate Urine Bilirubin Urine Urobilinogen Leukocyte Esterase Rfl Vancomycin Trough Quality VTE Prophylaxis VTE prophylaxis: pharmacologic ordered
[2024-08-11 07:59] LABS: Glucose Point of Care 126 mg/dl (65-105)
[2024-08-11 08:15] LABS: CRP 5.6 mg/dL (<1.0)
[2024-08-11 08:29] LABS: Erythrocyte Sedimentation Rate 109 mm/hr (0-20)
[2024-08-11] MEDS: LINEZOLID 600 MG TABLET PO ×2 (09:33→20:18)
[2024-08-11] MEDS: CYANOCOBALAMIN 1,000 MCG TABLET 1000 MCG PO (09:33)
[2024-08-11] MEDS: LORATADINE 10 MG TABLET PO (09:33)
[2024-08-11] MEDS: ASCORBIC ACID 500 MG TABLET PO (09:33)
[2024-08-11] MEDS: THERAPEUTIC MULTIVITAMINS/MINERALS TAB (*BKC) 1 TABLET PO (09:33)
[2024-08-11] MEDS: CHOLECALCIFEROL 1,000 UNITS TABLET 2000 UNITS PO (09:33)
[2024-08-11] MEDS: CANDESARTAN CILEXETIL 16 MG TABLET 32 MG PO (09:33)
[2024-08-11] MEDS: ENOXAPARIN 40 MG/0.4 ML SYRINGE SUB-Q (09:44)
[2024-08-11] MEDS: FUROSEMIDE INJ 40 MG/4 ML VIAL IV PUSH (09:45)
[2024-08-11] MEDS: POTASSIUM CHLORIDE 20 MEQ ER TABLET 40 MEQ PO (09:48)
[2024-08-11] MEDS: HYDROcodone/acetaminophen (*CRX) 5-325 MG TABLET 1 TAB PO ×2 (09:50→15:28)
[2024-08-11 12:04] LABS: Glucose Point of Care 136 mg/dl (65-105)
[2024-08-11] MEDS: BENZONATATE 100 MG CAPSULE 200 MG PO ×2 (14:00→17:18)
[2024-08-11 17:13] LABS: Glucose Point of Care 121 mg/dl (65-105)
[2024-08-11] MEDS: guaiFENesin/DEXTROMETHORPHAN 10 ML UDC PO (20:17)
[2024-08-11 21:01] LABS: Glucose Point of Care 139 mg/dl (65-105)
[2024-08-12] VITALS (11 sets, daily range): BP systolic 128–156; BP diastolic 62–68; PULSE 84–91; RESP 16–20; TEMP 36.3–36.7; O2SAT 91–99
[2024-08-12] MEDS: HYDROcodone/acetaminophen (*CRX) 5-325 MG TABLET 1 TAB PO ×5 (01:45→22:11)
[2024-08-12] MEDS: guaiFENesin/DEXTROMETHORPHAN 10 ML UDC PO ×2 (01:45→17:16)
[2024-08-12] MEDS: PIPERACILLN/TAZ 3.375GM/NS50ML 3.375 GM/50 ML BAG IVPB ×4 (01:48→20:05)
[2024-08-12] MEDS: IPRATROPIUM 0.5 MG/ALBUTEROL SULFATE 2.5 MG AMPUL.NEB 3 ML INHALATION ×4 (02:33→18:18)
[2024-08-12 05:43] LABS: Basophils Absolute Auto 0.1 K/mm3 (0.0-0.1); Basophils Percent Auto 0.5 % (0.2-1.2); Eosinophils Absolute Auto 0.1 K/mm3 (0-0.3); Eosinophils Percent Auto 0.5 % (0-4.4); Hematocrit 36.2 % (42.0-52.0); Hemoglobin 12.1 g/dL (14.0-18.0); Immature Granulocyte Absolute 0.68 K/mm3 (0.00-0.031); Immature Granulocyte Percent A 4.6 % (0-0.5); Lymphocytes Absolute Auto 2.02 K/mm3 (0.9-3.2); Lymphocytes Percent Auto 13.5 % (18.3-44.2); Mean Corpuscular HGB Conc 33.4 g/dl (32-36); Mean Corpuscular Hemoglobin 27.6 pg (26-34); Mean Corpuscular Volume 82.5 fl (80-100); Mean Platelet Volume 9.9 fl (7.4-10.4); Monocytes Absolute Auto 1.6 K/mm3 (0.1-0.6); Monocytes Percent Auto 10.6 % (2.6-8.5); Neutrophils Absolute Auto 10.5 K/mm3 (1.3-6.7); Neutrophils Percent Auto 70.3 % (45.5-73.1); Platelet Count Result 349 k/mm3 (150-375); Red Blood Count 4.39 M/mm3 (4.6-6.20); Red Cell Distribution Width 16.1 % (11.5-14.5); White Blood Count 14.9 K/mm3 (4.5-10.0)
[2024-08-12 06:03] LABS: Alanine Aminotransferase 19 U/L (6-50); Albumin Level 3.3 g/dL (3.5-5.1); Alkaline Phosphatase 177 U/L (38-126); Anion Gap 6 mmol/L (4-12); Aspartate Amino Transferase 32 U/L (17-59); Bilirubin,Total 1.8 mg/dL (0.2-1.3); Blood Urea Nitrogen 27 mg/dL (9-20); CRP 6.3 mg/dL (<1.0); Calcium 8.3 mg/dL (8.4-10.2); Carbon Dioxide 33 mmol/L (22-30); Chloride 99 mmol/L (98-107); Estimated CRCL calculation 69 ml/min; Estimated Glomerular Filt Rate 55; Glucose 129 mg/dL (65-110); Potassium 3.2 mmol/L (3.4-5.0); Sodium 138 mmol/L (137-145)
[2024-08-12 07:34] LABS: Glucose Point of Care 116 mg/dl (65-105)
[2024-08-12 08:11] LABS: Erythrocyte Sedimentation Rate 59 mm/hr (0-20)
[2024-08-12] MEDS: BENZONATATE 100 MG CAPSULE 200 MG PO ×3 (08:51→17:15)
[2024-08-12] MEDS: ASCORBIC ACID 500 MG TABLET PO (08:51)
[2024-08-12] MEDS: CHOLECALCIFEROL 1,000 UNITS TABLET 2000 UNITS PO (08:52)
[2024-08-12] MEDS: CANDESARTAN CILEXETIL 16 MG TABLET 32 MG PO (08:52)
[2024-08-12] MEDS: THERAPEUTIC MULTIVITAMINS/MINERALS TAB (*BKC) 1 TABLET PO (08:52)
[2024-08-12] MEDS: LORATADINE 10 MG TABLET PO (08:52)
[2024-08-12] MEDS: FUROSEMIDE 40 MG TABLET PO (08:52)
[2024-08-12] MEDS: CYANOCOBALAMIN 1,000 MCG TABLET 1000 MCG PO (08:52)
[2024-08-12] MEDS: LINEZOLID 600 MG TABLET PO ×2 (08:52→20:05)
[2024-08-12] MEDS: ENOXAPARIN 40 MG/0.4 ML SYRINGE SUB-Q (08:53)
[2024-08-12 12:01] LABS: Glucose Point of Care 134 mg/dl (65-105)
[2024-08-12] MEDS: POTASSIUM CHLORIDE 20 MEQ ER TABLET 40 MEQ PO (13:18)
--- NOTE | 2024-08-12 13:24 | P.PNIM_ITS ---
Progress Note: A&P Assessment and Plan (1) Cellulitis: Code(s): L03.90 - Cellulitis, unspecified Status: Acute Assessment and Plan: Patient quit taking his medications while on vacation for 3 weeks cellulitis of the LLE likely secondary to his diabetes, not taking his Lasix, and reported he hit it on multiple wheelchair bars. * Blood cultures showing no growth to date * Wound culture pending * tib-fib x-ray no acute of with this finding * venous Doppler negative for DVT * elevate extremity when at rest on 2 pillows * Continue pain control * CT of left lower extremity with contrast shown likely cellulitis with skin thickening and diffuse subcutaneous edema throughout the left lower leg and extending over the dorsum of the foot, no abscess, moderate osteoarthritis at the medial and lateral margins of the left knee, chronic Achilles tendonitis * WBC Now trending downward to 14.9 today * continue linezolid and Zosyn * Swelling and redness continues to improving (2) CHF (congestive heart failure): Code(s): I50.9 - Heart failure, unspecified Status: Acute Assessment and Plan: * Continue oral Lasix (3) Diabetes: Code(s): E11.9 - Type 2 diabetes mellitus without complications Status: Acute Assessment and Plan: * Blood sugars ranging 116-134 * Hgb A1C 6.1 * Accu checks AC/HS * Moderate dose SSI ordered * Hold metformin and glimepiride * hypoglycemic protocol in place * Diabetic diet ordered (4) Hypertension: Code(s): I10 - Essential (primary) hypertension Status: Acute Assessment and Plan: * Blood pressure ranging 128/62-135/65 * Continue Candesartan Time Spent With Patient Time with patient: 15 - 25 minutes Subjective Date/time seen: 08/12/24 13:24 Interval history: Interval history: This is a 69-year-old male who presented to the hospital on 08/07/2024 with cellulitis to the left lower extremity. Workup in the hospital included tib fib x-ray which was negative for any acute osseous process. Venous Doppler study was also obtained and was negative for DVT. Initial labs showed a white blood cell count of 18.8, hemoglobin 13.7, creatinine 1.40, EGFR 50, alkaline phos 188, proBNP 827. Blood cultures were obtained and are pending. Patient was s tarted on Ancef and Vancomycin and then transitioned to Linezolid and Zosyn due to WBC increasing and cellulitis worsening on 08/09/14 Subjective: Patient states that his coughing fits are less today after starting Tessalon Perles. He states he is starting to cough up mucous. He denies any other new complaints today. Labs reviewed and WBC is still trending downward along with ESR. Review of Systems Review of Systems: All systems reviewed & are unremarkable except as noted in HPI and below Constitutional: Constitutional: Reports as per HPI and Reports no additional constitutional complaints Eyes: Eyes: Reports as per HPI and Reports no additional eye complaints ENT: Reports system reviewed and no additional complaints, except as documented and Reports as per HPI Cardiovascular: Cardiovascular: Reports as per HPI and Reports no additional cardiovascular complaints Respiratory: Respiratory: Reports as per HPI and Reports no additional respiratory complaints Gastrointestinal: Gastrointestinal: Reports as per HPI and Reports no additional gastrointestinal complaints Genitourinary: Genitourinary: Reports no additional male genitourinary complaints and Reports as per HPI Musculoskeletal: Musculoskeletal: Reports no additional musculoskeletal complaints and Reports as per HPI Integumentary/Breasts: Skin/Breast: Reports system reviewed and no additional complaints, except as docu and Reports as per HPI Neurologic: Reports system reviewed and no additional complaints, except as documented and Reports as per HPI Psychiatric: Psychiatric: Reports no additional psychiatric complaints and Reports as per HPI Exam Narrative: General: In no acute distress, well nourished Cardiac: Normal S1 and S2. No murmur, gallops or friction rubs, peripheral pulses intact. Respiratory: Lungs clear to auscultation, mild expiratory wheeze on the Right, no other adventitious lung sounds, currently on room air Gastrointestinal: soft, non-distended, non-tender, normoactive bowel sounds. : voiding without difficulty cloudy vic urine Skin: Left lower extremity swelling and redness, continued improvement Neuro: Alert and oriented x4 Objective Data Vital Signs Vital Signs: Vital Signs - 24 hr 08/11/24 13:29 08/11/24 14:00 08/11/24 20:00 Temperature 97.7 F Pulse Rate 92 96 Respiratory Rate 20 24 H Blood Pressure 121/70 Pulse Oximetry 90 Oxygen Delivery Room Air Fraction of Inspired Oxygen 08/11/24 20:02 08/11/24 20:25 08/11/24 20:25 Temperature 97.6 F Pulse Rate 91 90 Respiratory Rate 20 20 Blood Pressure 106/64 Pulse Oximetry 92 93 Oxygen Delivery Room Air Fraction of Inspired Oxygen 08/12/24 02:33 08/12/24 03:00 08/12/24 04:15 Temperature 98.1 F Pulse Rate 84 87 91 Respiratory Rate 20 20 20 Blood Pressure 128/64 Pulse Oximetry 93 Oxygen Delivery Fraction of Inspired Oxygen 08/12/24 07:30 08/12/24 07:30 08/12/24 07:39 Temperature Pulse Rate 84 90 Respiratory Rate 18 18 Blood Pressure Pulse Oximetry 94 Oxygen Delivery Room Air Fraction of Inspired Oxygen 21 08/12/24 13:20 Temperature Pulse Rate 87 Respiratory Rate 20 Blood Pressure Pulse Oximetry Oxygen Delivery Fraction of Inspired Oxygen Intake/Output Intake/Output: Intake & Output 08/09/24 08/10/24 08/11/24 08/12/24 23:59 23:59 23:59 23:59 Intake Total 1740 1460 1300 1350 Output Total 3100 2775 1140 450 Balance -1360 -1315 160 900 Meds/Results Medications: Active Medications Generic Name Dose Route Start Last Admin Trade Name Freq PRN Reason Stop Dose Admin Acetaminophen 650 mg 08/07/24 14:59 Acetaminophen 325 Mg Tablet PO Q4H PRN Mild Pain (1-3) or Fever Hydrocodone Bitart/Acetaminophen 1 tab 08/07/24 14:59 08/12/24 07:38 Hydrocodone/Acetaminophen (*Crx) 5-325 Mg Tablet PO 1 tab Q4H PRN Administration Moderate Pain (4-6) Albuterol 2 puff 08/08/24 22:13 08/10/24 10:47 Albuterol Sulfate (*Sp) Aerosol 1 Puff INHALATION 2 puff Q6HRT PRN Administration Shortness Of Breath Albuterol/Ipratropium 3 ml 08/10/24 14:00 08/12/24 13:20 Ipratropium 0.5 Mg/Albuterol Sulfate 2.5 Mg Ampul.Neb 3 Ml INHALATION 3 ml Q6HRT KAVIN Administration Ascorbic Acid 500 mg 08/08/24 09:00 08/12/24 08:51 Ascorbic Acid 500 Mg Tablet PO 500 mg DAILY KAVIN Administration Benzonatate 200 mg 08/11/24 14:00 08/12/24 13:18 Benzonatate 100 Mg Capsule PO 200 mg TID KAVIN Administration Candesartan Cilexetil 32 mg 08/08/24 09:00 08/12/24 08:52 Candesartan Cilexetil 16 Mg Tablet PO 32 mg QAM KAVIN Administration Cyanocobalamin 1,000 mcg 08/08/24 09:00 08/12/24 08:52 Cyanocobalamin 1,000 Mcg Tablet PO 1,000 mcg QAM KAVIN Administration Dextrose 12.5 gm 08/07/24 12:06 Dextrose 50% 25 Gm/50 Ml Syringe IV PUSH PRN PRN Hypoglycemia Protocol Dextrose 12.5 gm 08/07/24 15:01 Dextrose 50% 25 Gm/50 Ml Syringe IV PUSH PRN PRN Hypoglycemia Protocol Enoxaparin Sodium 40 mg 08/08/24 09:00 08/12/24 08:53 Enoxaparin 40 Mg/0.4 Ml Syringe SUB-Q 40 mg DAILY KAVIN Administration Furosemide 40 mg 08/12/24 09:00 08/12/24 08:52 Furosemide 40 Mg Tablet PO 40 mg DAILY KAVIN Administration Glucagon 1 mg 08/07/24 12:06 Glucagon For Inj 1 Mg Vial IM PRN PRN Hypoglycemia Protocol Glucagon 1 mg 08/07/24 15:01 Glucagon For Inj 1 Mg Vial IM PRN PRN Hypoglycemia Protocol Glucose 15 gm 08/07/24 12:06 Glucose Oral Gel 15 Gm Of Glucse In 37.5 Gm Tube PO PRN PRN Hypoglycemia Protocol Glucose 15 gm 08/07/24 15:01 Glucose Oral Gel 15 Gm Of Glucse In 37.5 Gm Tube PO PRN PRN Hypoglycemia Protocol Guaifenesin/Dextromethorphan 10 ml 08/07/24 22:14 08/12/24 01:45 Guaifenesin/Dextromethorphan 10 Ml Udc PO 10 ml Q4H PRN Administration Cough Dextrose 1,000 mls @ 100 mls/hr 08/07/24 12:06 Dextrose 5% 1,000 Ml IVPB PRN PRN Hypoglycemia Protocol Dextrose 1,000 mls @ 100 mls/hr 08/07/24 15:01 Dextrose 5% 1,000 Ml IVPB PRN PRN Hypoglycemia Protocol Piperacillin/Tazobactam/Dextrose 3.375 gm in 50 mls @ 100 mls/hr 08/09/24 15:00 08/12/24 09:25 Zosyn 3.375 Gm/Ns 50 Ml IVPB Infused Q6H [facility] Infusion Insulin Aspart 3 - 6 units 08/07/24 17:00 08/12/24 12:08 Insulin Aspart (*Bkc) 100 Units/Ml SUB-Q Not Given TIDWM [facility] Protocol Linezolid 600 mg 08/09/24 21:00 08/12/24 08:52 Linezolid 600 Mg Tablet PO 600 mg Q12HR KAVIN Administration Loratadine 10 mg 08/08/24 09:00 08/12/24 08:52 Loratadine 10 Mg Tablet PO 10 mg QAM KAVIN Administration Morphine Sulfate 2 mg 08/07/24 14:59 Morphine Sulfate (*Crx) 2 Mg/Ml Inj IV PUSH Q4H PRN Pain Rated 7-10 Multivitamins/Calcium 1 tablet 08/08/24 09:00 08/12/24 08:52 Therapeutic Multivitamins/Minerals Tab (*Bkc) PO 1 tablet DAILY KAVIN Administration Naloxone HCl 0.1 mg 08/07/24 14:59 Naloxone Hcl 0.4 Mg/Ml Vial IV PUSH Q2M PRN Opiate Reversal Ondansetron HCl 4 mg 08/07/24 14:59 Ondansetron Inj 4 Mg/2 Ml Vial IV PUSH Q6H PRN Nausea And Vomiting Vitamin D 2,000 units 08/08/24 09:00 08/12/24 08:52 Cholecalciferol 1,000 Units Tablet PO 2,000 units DAILY KAVIN Administration Radiology Results: ITS Impressions Tibia/Fibula X-Ray 08/07/24 00:14 IMPRESSION: No acute osseous finding the left tibia/fibula. Venous Doppler Study 08/07/24 08:59 IMPRESSION: Negative left lower extremity venous US. No deep vein thrombosis. Tibia/Fibula CT 08/08/24 15:30 IMPRESSION: 1. Likely cellulitis with skin thickening and diffuse subcutaneous edema throughout the left lower leg and extending over the dorsum of the foot. No abscess. 2. At least moderate osteoarthritis at the medial and lateral margins of the left knee, severity of which could be underestimated on nonweightbearing imaging. 3. Chronic Achilles tendinosis. Chest X-Ray 08/09/24 14:33 Impression: 1: Mild pulmonary vascular congestion. Labs Labs: Laboratory Results - last 24 hr 08/11/24 08/11/24 08/12/24 17:09 19:48 05:03 WBC 14.9 H RBC 4.39 L Hgb 12.1 L Hct 36.2 L MCV 82.5 MCH 27.6 MCHC 33.4 RDW 16.1 H Plt Count 349 MPV 9.9 Immature Gran % (Auto) 4.6 H Neut % (Auto) 70.3 Lymph % (Auto) 13.5 L [place] % (Auto) 10.6 H Eos % (Auto) 0.5 Baso % (Auto) 0.5 Lymph # (Auto) 2.02 [place] # (Auto) 1.6 H Eos # (Auto) 0.1 Baso # (Auto) 0.1 Abs Immat Gran (auto) 0.68 H Absolute Neuts (auto) 10.5 H Absolute Nucleated RBC 0.000 Nucleated RBC % 0.0 ESR 59 H Sodium 138 Potassium 3.2 L Chloride 99 Carbon Dioxide 33 H Anion Gap 6 BUN 27 H Creatinine 1.30 Estim Creat Clear Calc 69 Estimated GFR 55 L Glucose 129 H POC Capillary Glucose 121 H 139 H Calcium 8.3 L Total Bilirubin 1.8 H AST 32 ALT 19 Alkaline Phosphatase 177 H C-Reactive Protein 6.3 H Total Protein 8.0 Albumin 3.3 L 08/12/24 08/12/24 07:31 11:58 WBC RBC Hgb Hct MCV MCH MCHC RDW Plt Count MPV Immature Gran % (Auto) Neut % (Auto) Lymph % (Auto) [place] % (Auto) Eos % (Auto) Baso % (Auto) Lymph # (Auto) [place] # (Auto) Eos # (Auto) Baso # (Auto) Abs Immat Gran (auto) Absolute Neuts (auto) Absolute Nucleated RBC Nucleated RBC % ESR Sodium Potassium Chloride Carbon Dioxide Anion Gap BUN Creatinine Estim Creat Clear Calc Estimated GFR Glucose POC Capillary Glucose 116 H 134 H Calcium Total Bilirubin AST ALT Alkaline Phosphatase C-Reactive Protein Total Protein Albumin Quality VTE Prophylaxis VTE prophylaxis: pharmacologic ordered
[2024-08-12 17:12] LABS: Glucose Point of Care 142 mg/dl (65-105)
[2024-08-12 20:26] LABS: Glucose Point of Care 146 mg/dl (65-105)
[2024-08-13] VITALS (9 sets, daily range): BP systolic 103–134; BP diastolic 60–86; PULSE 83–96; RESP 16–20; TEMP 36.5–36.9; O2SAT 90–93
[2024-08-13] MEDS: HYDROcodone/acetaminophen (*CRX) 5-325 MG TABLET 1 TAB PO ×4 (02:51→15:54)
[2024-08-13] MEDS: PIPERACILLN/TAZ 3.375GM/NS50ML 3.375 GM/50 ML BAG IVPB ×3 (02:52→14:14)
[2024-08-13] MEDS: MORPHINE SULFATE (*CRX) 2 MG/ML INJ IV PUSH (02:56)
[2024-08-13] MEDS: IPRATROPIUM 0.5 MG/ALBUTEROL SULFATE 2.5 MG AMPUL.NEB 3 ML INHALATION ×3 (03:00→13:36)
[2024-08-13 06:29] LABS: Basophils Absolute Auto 0.1 K/mm3 (0.0-0.1); Basophils Percent Auto 0.4 % (0.2-1.2); Eosinophils Absolute Auto 0.1 K/mm3 (0-0.3); Eosinophils Percent Auto 0.8 % (0-4.4); Hematocrit 37.2 % (42.0-52.0); Hemoglobin 11.9 g/dL (14.0-18.0); Immature Granulocyte Percent A 3.6 % (0-0.5); Lymphocytes Absolute Auto 1.87 K/mm3 (0.9-3.2); Lymphocytes Percent Auto 13.5 % (18.3-44.2); Mean Corpuscular Hemoglobin 27.1 pg (26-34); Mean Corpuscular Volume 84.7 fl (80-100); Monocytes Absolute Auto 1.5 K/mm3 (0.1-0.6); Neutrophils Absolute Auto 9.8 K/mm3 (1.3-6.7); Neutrophils Percent Auto 70.7 % (45.5-73.1); Platelet Count Result 359 k/mm3 (150-375); Red Blood Count 4.39 M/mm3 (4.6-6.20); Red Cell Distribution Width 16.3 % (11.5-14.5); White Blood Count 13.9 K/mm3 (4.5-10.0)
[2024-08-13 06:47] LABS: Erythrocyte Sedimentation Rate 42 mm/hr (0-20)
[2024-08-13 07:10] LABS: Alanine Aminotransferase 42 U/L (6-50); Albumin Level 3.4 g/dL (3.5-5.1); Alkaline Phosphatase 165 U/L (38-126); Anion Gap 5 mmol/L (4-12); Aspartate Amino Transferase 55 U/L (17-59); Bilirubin,Total 2.4 mg/dL (0.2-1.3); Blood Urea Nitrogen 24 mg/dL (9-20); CRP 6.1 mg/dL (<1.0); Calcium 8.5 mg/dL (8.4-10.2); Carbon Dioxide 33 mmol/L (22-30); Chloride 100 mmol/L (98-107); Estimated CRCL calculation 74 ml/min; Estimated Glomerular Filt Rate 60; Glucose 122 mg/dL (65-110); Potassium 3.9 mmol/L (3.4-5.0); Sodium 138 mmol/L (137-145)
[2024-08-13] MEDS: LORATADINE 10 MG TABLET PO (08:03)
[2024-08-13] MEDS: ASCORBIC ACID 500 MG TABLET PO (08:03)
[2024-08-13] MEDS: CANDESARTAN CILEXETIL 16 MG TABLET 32 MG PO (08:03)
[2024-08-13] MEDS: FUROSEMIDE 40 MG TABLET PO (08:03)
[2024-08-13] MEDS: CYANOCOBALAMIN 1,000 MCG TABLET 1000 MCG PO (08:03)
[2024-08-13] MEDS: THERAPEUTIC MULTIVITAMINS/MINERALS TAB (*BKC) 1 TABLET PO (08:03)
[2024-08-13] MEDS: BENZONATATE 100 MG CAPSULE 200 MG PO ×3 (08:04→16:07)
[2024-08-13] MEDS: LINEZOLID 600 MG TABLET PO (08:04)
[2024-08-13] MEDS: CHOLECALCIFEROL 1,000 UNITS TABLET 2000 UNITS PO (08:04)
[2024-08-13] MEDS: ENOXAPARIN 40 MG/0.4 ML SYRINGE SUB-Q (08:04)
[2024-08-13 08:10] LABS: Glucose Point of Care 116 mg/dl (65-105)
--- NOTE | 2024-08-13 09:20 | P.DS_ITS ---
DS: Admitting Diagnosis Discharge Date 08/13/24 Admitting Diagnosis cellulitis diabetes hypertension DS: Discharge Diagnosis Discharge Diagnosis (1) Cellulitis: Code(s): L03.90 - Cellulitis, unspecified Status: Acute (2) CHF (congestive heart failure): Code(s): I50.9 - Heart failure, unspecified Status: Acute (3) Diabetes: Code(s): E11.9 - Type 2 diabetes mellitus without complications Status: Acute (4) Hypertension: Code(s): I10 - Essential (primary) hypertension Status: Acute DS: Summary Hospital Course Reason for hospitalization: cellulitis diabetes hypertension Hospital Course: This is a 69-year-old male who presented to the hospital on 08/07/2024 with cellulitis to the left lower extremity. Workup in the hospital included tib fib x-ray which was negative for any acute osseous process. Venous Doppler study was also obtained and was negative for DVT. Initial labs showed a white blood cell count of 18.8, hemoglobin 13.7, creatinine 1.40, EGFR 50, alkaline phos 188, proBNP 827. Blood cultures were obtained and are pending. Patient was started on Ancef and Vancomycin and then transitioned to Linezolid and Zosyn due to WBC increasing and cellulitis worsening on 08/09/14. since changing over to the linezolid and Zosyn his white count started coming back down and is currently at 13.9. his leg does appear to be much better than when he 1st came in. He has decreased swelling, decreased redness, and decrease to form for to that area. ESR is trending downward as well as CRP. he was also diuresed for few days with improvement in his pulmonary vascular congestion. He is stable for discharge at this time. He will need to finish a total of 14 days' worth of antibiotics and then follow up with his primary care physician in 1 week. final diagnosis: cellulitis Status at Discharge Cognitive/behavioral status at discharge: alert oriented x4 Functional status at discharge: independent ambulation Overall status at discharge: patient is progressing back to baseline Time Spent with Patient Time attestation: Total time spent providing and/or coordinating discharge services: Time spent: Greater than 30 minutes Exam Narrative: General: In no acute distress, well nourished Cardiac: Normal S1 and S2. No murmur, gallops or friction rubs, peripheral pulses intact. Respiratory: Lungs clear to auscultation, mild expiratory wheeze on the Right, no other adventitious lung sounds, currently on room air Gastrointestinal: soft, non-distended, non-tender, normoactive bowel sounds. : voiding without difficulty cloudy vic urine Skin: Left lower extremity swelling and redness, continued improvement Neuro: Alert and oriented x4 DS: Data Data Completed and Pending Completed studies during hospitalization: tib fib x-ray venous Doppler study tib fib CT chest x-ray Pending studies at discharge: wound culture Labs on day of discharge: Labs from last 24 hours 08/13/24 08/13/24 08/12/24 07:58 05:46 20:15 WBC 13.9 H RBC 4.39 L Hgb 11.9 L Hct 37.2 L MCV 84.7 MCH 27.1 MCHC 32.0 RDW 16.3 H Plt Count 359 MPV 10.0 Immature Gran % (Auto) 3.6 H Neut % (Auto) 70.7 Lymph % (Auto) 13.5 L [place] % (Auto) 11.0 H Eos % (Auto) 0.8 Baso % (Auto) 0.4 Lymph # (Auto) 1.87 [place] # (Auto) 1.5 H Eos # (Auto) 0.1 Baso # (Auto) 0.1 Abs Immat Gran (auto) 0.50 H Absolute Neuts (auto) 9.8 H Absolute Nucleated RBC 0.000 Nucleated RBC % 0.0 ESR 42 H Sodium 138 Potassium 3.9 Chloride 100 Carbon Dioxide 33 H Anion Gap 5 BUN 24 H Creatinine 1.20 Estim Creat Clear Calc 74 Estimated GFR 60 Glucose 122 H POC Capillary Glucose 116 H 146 H Calcium 8.5 Total Bilirubin 2.4 H AST 55 ALT 42 Alkaline Phosphatase 165 H C-Reactive Protein 6.1 H Total Protein 8.0 Albumin 3.4 L 08/12/24 08/12/24 17:05 11:58 WBC RBC Hgb Hct MCV MCH MCHC RDW Plt Count MPV Immature Gran % (Auto) Neut % (Auto) Lymph % (Auto) [place] % (Auto) Eos % (Auto) Baso % (Auto) Lymph # (Auto) [place] # (Auto) Eos # (Auto) Baso # (Auto) Abs Immat Gran (auto) Absolute Neuts (auto) Absolute Nucleated RBC Nucleated RBC % ESR Sodium Potassium Chloride Carbon Dioxide Anion Gap BUN Creatinine Estim Creat Clear Calc Estimated GFR Glucose POC Capillary Glucose 142 H 134 H Calcium Total Bilirubin AST ALT Alkaline Phosphatase C-Reactive Protein Total Protein Albumin Preliminary micro results at discharge 08/08/24 10:22 Anaerobic Culture - Preliminary Leg Left Procedures/Treatments: none Discharge Plan Discharge Attending physician on discharge: Blu Fitch Consulting providers: Liane Combs; Jen Barney Discharging Clinician: Liane Combs Anticipated Discharge Date/Time: 08/13/24 08:49 Patient Disposition: Home, Self-Care Activity: may shower and as tolerated Diet: as tolerated and diabetic Discharge Instructions: * You may shower. No pools, hot tubs, baths, or submerging your leg in any body of water until wounds are completely healed * Finish all your antibiotic as directed even if you are feeling better * Follow up with your primary care doctor in 2 weeks. Patient Instructions: Antibiotic Form Patient Language: Nigerian Stand Alone Forms: General Discharge Information Follow-up/Referrals: Tru,DIA Perez [Primary Care Provider] - 2 Weeks Discharge Medications: New hydrocodone-acetaminophen 5-325 mg Tablet 1 tablet PO Q4H PRN (Reason: Moderate Pain (4-6)) Qty: 20 0RF amoxicillin-pot clavulanate 875-125 mg tablet 1 tablet PO Q12H Qty: 20 0RF linezolid 600 mg Tablet 600 mg PO Q12HR Qty: 20 0RF benzonatate 100 mg Capsule 200 mg PO TID Qty: 30 0RF Continued furosemide 40 mg tablet 40 mg PO DAILY cetirizine 10 mg Tablet 10 mg PO DAILY potassium chloride 10 mEq tablet extended release 10 meq PO DAILY naproxen sodium [Aleve] 220 mg Tablet 440 mg PO BID PRN (Reason: Pain) candesartan 32 mg tablet 32 mg PO DAILY docosahexaenoic [id number]-kfm-oip E Capsule 2 cap PO DAILY One-A-Day Men's 50 Plus(vit K) 400-20-370 mcg Tablet 1 tablet PO DAILY metformin 750 mg tablet extended release 24 hr 750 mg PO QPM glimepiride 1 mg tablet 1 mg PO DAILY cholecalciferol (vitamin D3) [Vitamin D3] 50 mcg (2,000 unit) capsule 50 mcg PO DAILY mecobalamin (vitamin B12) 1,000 mcg tablet,chewable 1,000 mcg PO DAILY ascorbic acid (vitamin C) [C-500] 500 mg tablet 500 mg PO DAILY Date of admission: 08/09/24 15:26 Primary Care Provider: TruAna Admitting Provider: Sedrick Atkins Attending physician on admission: Sedrick Atkins Condition: Improved Quality VTE Prophylaxis VTE prophylaxis: pharmacologic ordered
[2024-08-13 12:07] LABS: Glucose Point of Care 120 mg/dl (65-105)
[2024-08-13] MEDS: guaiFENesin/DEXTROMETHORPHAN 10 ML UDC PO (12:22)
[2024-08-13] MEDS: INFLUENZA VACCINE HIGH DOSE (>64) 180 MCG/0.5 ML SYRINGE IM (14:39)
== END 2024-08-13 16:20 | disposition home health service (06) | DRG 638 ==
LOC: ANHED 08-07 10:07 → ANH2MED 08-07 13:23
PROVIDERS: Nurse Practitioner Family; Admitting Provider Internal Medicine; Emergency Provider Emergency Medicine; PCP Physician Assistant; Visit Provider Nurse Practitioner Acute Care
DX: E11.628 Type 2 diabetes mellitus with other skin complications (principal); L03.116 Cellulitis of left lower limb; Z91.148 Patient's other noncompliance with medication regimen for other reason; Z23 Encounter for immunization; I11.0 Hypertensive heart disease with heart failure; I50.9 Heart failure, unspecified
CPT/HCPCS: 36415; 71045; 73590; 73701; 80053; 80202; 81001; 82948; 83036; 83605; 83880; 85025; 85652; 86140; 87040; 87070; 87075; 87205; 90471; 90662; 93971; 94640; 96375; 96376; 99285; A9270; G0008; G0378; J0690; J1650; J1940; J2270; J2543; J3370; Q9967

== ENCOUNTER 2024-08-28 12:35 | Outpatient (RCR) | payer MEDICARE, SELFPAY ==
[2024-08-28 13:25] VITALS: BMI 48.8
== END 2024-11-02 13:47 | disposition home or self-care (01) ==
LOC: ANHWOC 12:35
PROVIDERS: PCP Physician Assistant; Visit Provider Physician Assistant
DX: L97.929 Non-pressure chronic ulcer of unspecified part of left lower leg with unspecified severity (principal)
CPT/HCPCS: 29581

== ENCOUNTER 2024-09-04 15:05 | Outpatient (CLI) | payer MEDICARE, SELFPAY ==
--- NOTE | 2024-09-04 | ECHO_ITS ---
Patient Info Name: Brijesh Rao Age: 69 years : 1955 Gender: Male Ht: 67 in Wt: 297 lbs BSA: 2.60 m2 HR: 85 bpm BP: 139 / 99 mmHg Heart Rhythm: Sinus Rhythm Technical Quality: Fair Exam Date: 09/04/2024 3:53 PM Exam Location: Echo Lab Patient Status: Outpatient Admit Date: 09/04/2024 Staff Ordering Physician: TomasaAna PA-C Disaster Response Director: Jose Alfaro RDCS Attending Provider: TomasaAna PA-C Exam Type: CA echo doppler color flow Study Info Indications - bilat lower limb edema Complete two-dimensional, color flow and Doppler transthoracic echocardiogram is performed. Summary 1. Left ventricular chamber dimension is normal. 2. Left ventricular systolic function is normal, estimated at 60-65%. 3. The left ventricular diastolic function is grade I diastolic dysfunction. 4. Right ventricular systolic function is normal. 5. No significant valvular disease. Left Ventricle Left ventricular chamber dimension is normal. Left ventricular systolic function is normal, estimated at 60-65%. There is no increased left ventricular wall thickness. The left ventricular diastolic function is grade I diastolic dysfunction. Right Ventricle Right ventricular chamber dimension is normal. Right ventricular systolic function is normal. Left Atria Left atrial chamber dimension is normal. Right Atria Right atrial chamber dimension is normal. Atrial Septum Intact interatrial septum visualized by color flow imaging. Aortic Valve The aortic valve is trileaflet. There is mild aortic valve sclerosis. There is no aortic valve stenosis. There is no aortic valve regurgitation. Pulmonic Valve The pulmonic valve is not well visualized. There is trace pulmonic regurgitation. Mitral Valve There is trace mitral valve regurgitation. Tricuspid Valve There is trace tricuspid valve regurgitation. Pericardium/Pleural The pericardium appears epicardial fat pad. There is no pericardial effusion. Inferior Vena Cava Normal inferior vena cava with >50% collapse upon inspiration consistent with normal right atrial pressure, 3 mmHg. Aorta The aortic root size at the sinus of Valsalva is normal. Left Ventricular Outflow Tract Name Value Normal LVOT 2D LVOT Diameter 2.0 cm LVOT Doppler LVOT Peak Gradient 2 mmHg LVOT Mean Gradient 1 mmHg LVOT VTI 14 cm LVOT VTI/AV VTI Ratio 0.7 LVOT Stroke Volume 44 ml LVOT CO 3.0 l/min LVOT CI 1.1 l/min/m2 Pulmonic Valve Name Value Normal PV Doppler PV Peak Gradient 6 mmHg PV Regurgitation Doppler DC Peak End Diastolic Velocity 103 cm/s Mitral Valve Name Value Normal MV Doppler MV Decel [place] 353 cm/s2 MV PHT 52 ms MV Area (PHT) 4.2 cm2 4.0-5.0 MV Diastolic Function MV E Peak Velocity 63 cm/s MV A Peak Velocity 105 cm/s MV E/A 0.6 MV Decel Time 179 ms Tricuspid Valve Name Value Normal TV Regurgitation Doppler TR Peak Velocity 233 cm/s TR Peak Gradient 20 mmHg Estimated PAP/RSVP RA Pressure 3 mmHg <=5 PA Systolic Pressure 25 mmHg <36 RV Systolic Pressure 25 mmHg <36 Aorta Name Value Normal Ascending Aorta Ao Root Diameter (MM) 2.7 cm Ao Root Diam Index (MM) 1.0 cm/m2 Aortic Valve Name Value Normal AV Doppler AV Peak Velocity 125 cm/s AV Peak Gradient 6 mmHg AV Mean Gradient 3 mmHg AV VTI 19 cm AV Area (Cont Eq VTI) 2.3 cm2 >=3.0 AV Area (Cont Eq Reese) 2.1 cm2 AV Regurgitation 2D LVOT Area 3.3 cm2 Ventricles Name Value Normal LV Dimensions 2D/MM IVS Diastolic Thickness (2D) 1.0 cm 0.6-1.0 IVS Diastole Thickness (MM) 0.9 cm 0.6-1.0 LVID Diastole (2D) 5.2 cm 4.2-5.8 LVID Diastole (MM) 5.9 cm 4.2-5.8 LVIW Diastolic Thickness (2D) 1.0 cm 0.6-1.0 LVIW Diastolic Thickness (MM) 0.9 cm 0.6-1.0 LVID Systole (2D) 3.5 cm 2.5-4.0 LVID Systole (MM) 3.4 cm 2.5-4.0 LVOT Diameter 2.0 cm LV Mass (2D Cubed) 189.76 g 88.00-224.00 LV Mass Index (2D Cubed) 73 g/m2 49-115 Relative Wall Thickness (2D) 0.37 LV Mass (MM Cubed) 210.43 g 88.00-224.00 LV Mass Index (MM Cubed) 81 g/m2 49-115 Relative Wall Thickness (MM) 0.32 LV Fractional Shortening/Ejection Fraction 2D/MM LV Fractional Shortening (2D) 32 % 25-43 LV Fractional Shortening (MM) 42 % 25-43 LV EF (MM Teicholz) 72 % 52-72 LV EF (2D Teicholz) 60 % 52-72 LV Diastolic Volume (4C MOD) 92 ml LV EF (4C MOD) 63 % LV Diastolic Length (4C) 7.6 cm LV Systolic Length (4C) 6.8 cm LV Stroke Volume (4C MOD) 58 ml Atria Name Value Normal LA Dimensions LA Dimension (MM) 4.6 cm 3.0-4.1 LA Volume (4C A-L) 50 ml LA Volume (BP A-L) 50 ml RA Dimensions RA Area (4C) 12.7 cm2 <=18.0 Report Signatures
== END 2024-09-04 15:06 | disposition home or self-care (01) ==
PROVIDERS: PCP Physician Assistant; Visit Provider Physician Assistant
DX: I51.9 Heart disease, unspecified (principal); R60.0 Localized edema
CPT/HCPCS: 93306